=== PATIENT | female | born 1950 | race Caucasian/White ===

== ENCOUNTER 2018-03-02 03:18 | Outpatient (RCR) | payer MEDICARE, OTHER, SELFPAY ==
[2018-03-02 08:55] LABS: Absolute Basophil Count 0.01 k/cumm (0.0-0.2); Absolute Lymphocyte Count 0.58 k/cumm (1.2-3.4); Absolute Monocyte Count 0.47 k/cumm (0.11-0.7); Basophils % 0.2; Eosinophils % 2.5; HCT 38.3 % (36.0-46.0); Lymphocytes % 14.3; Mean Corp. HGB Concentration 33.9 g/dL (32.0-36.0); Mean Corpuscular Hemoglobin 33.7 pg (27.0-33.0); Mean Corpuscular Volume 99.2 fL (80-95); Mean Platelet Volume 8.9 fL (8.0-11.0); Monocytes % 11.6; Neutrophils % 71.4; Platelet Count 269 x1000/uL (130-400); RBC 3.86 m/cumm (4.00-5.20); RBC Distribution Width 13.1 % (11.7-14.6); White Blood Cell Count 4.06 k/cumm (4.4-10.8)
[2018-03-02 09:13] LABS: ALT 31 U/L (12-78); AST 32 U/L (15-37); Albumin 3.3 g/dL (3.4-5.0); Alkaline Phosphatase 76 U/L (46-116); Anion Gap 9.9 mmol/L (3-11); BUN 11 mg/dL (7-18); Bilirubin, Total 0.4 mg/dL (0.2-1.0); CO2 26.1 mmol/L (21.0-32.0); Calcium 8.7 mg/dL (8.5-10.1); Chloride 103 mmol/L (98-107); Glucose 116 mg/dL (70-100); Potassium 3.7 mmol/L (3.5-5.1); Sodium 139 mmol/L (136-145)
[2018-03-23 12:15] LABS: Absolute Basophil Count 0.01 k/cumm (0.0-0.2); Absolute Eosinophil Count 0.09 k/cumm (0.0-0.7); Absolute Monocyte Count 0.62 k/cumm (0.11-0.7); Absolute Neutrophil Count 3.81 k/cumm (1.2-6.7); Basophils % 0.2; Eosinophils % 1.7; HCT 38.9 % (36.0-46.0); HGB 13.1 g/dL (12.0-15.5); Mean Corp. HGB Concentration 33.7 g/dL (32.0-36.0); Mean Corpuscular Hemoglobin 33.7 pg (27.0-33.0); Monocytes % 11.6; Neutrophils % 71.5; Platelet Count 273 x1000/uL (130-400); RBC 3.89 m/cumm (4.00-5.20); White Blood Cell Count 5.33 k/cumm (4.4-10.8)
[2018-03-23 12:27] LABS: ALT 30 U/L (12-78); AST 28 U/L (15-37); Albumin 3.6 g/dL (3.4-5.0); Alkaline Phosphatase 74 U/L (46-116); Anion Gap 4.3 mmol/L (3-11); BUN 13 mg/dL (7-18); Bilirubin, Total 0.3 mg/dL (0.2-1.0); CO2 28.7 mmol/L (21.0-32.0); CREATININE 0.59 mg/dL (0.55-1.02); Chloride 104 mmol/L (98-107); Glucose 98 mg/dL (70-100); Potassium 4.3 mmol/L (3.5-5.1); Sodium 137 mmol/L (136-145); Total Protein 7.4 g/dL (6.4-8.2)
== END 2018-03-24 ==
LOC: INF 03:29
PROVIDERS: PCP Family Medicine; Visit Provider Internal Medicine Medical Oncology
DX: C50.411 Malignant neoplasm of upper-outer quadrant of right female breast (principal); Z45.2 Encounter for adjustment and management of vascular access device
CPT/HCPCS: 36415; 80053; 85025

== ENCOUNTER 2018-04-17 00:59 | Outpatient (RCR) | payer MEDICARE, OTHER, SELFPAY ==
[2018-04-17 12:18] LABS: Absolute Basophil Count 0.03 k/cumm (0.0-0.2); Absolute Lymphocyte Count 0.65 k/cumm (1.2-3.4); Absolute Neutrophil Count 3.49 k/cumm (1.2-6.7); Basophils % 0.6; Eosinophils % 2.1; HCT 39.3 % (36.0-46.0); HGB 13.3 g/dL (12.0-15.5); Lymphocytes % 13.6; Mean Corp. HGB Concentration 33.8 g/dL (32.0-36.0); Mean Corpuscular Hemoglobin 33.8 pg (27.0-33.0); Mean Platelet Volume 8.9 fL (8.0-11.0); Monocytes % 10.5; Neutrophils % 73.2; Platelet Count 269 x1000/uL (130-400); RBC 3.93 m/cumm (4.00-5.20); RBC Distribution Width 12.7 % (11.7-14.6); White Blood Cell Count 4.77 k/cumm (4.4-10.8)
[2018-04-17 12:29] LABS: ALT 28 U/L (12-78); AST 25 U/L (15-37); Albumin 3.4 g/dL (3.4-5.0); Alkaline Phosphatase 74 U/L (46-116); Anion Gap 8.7 mmol/L (3-11); BUN 19 mg/dL (7-18); Bilirubin, Total 0.4 mg/dL (0.2-1.0); CO2 29.3 mmol/L (21.0-32.0); CREATININE 0.57 mg/dL (0.55-1.02); Calcium 9.2 mg/dL (8.5-10.1); Chloride 101 mmol/L (98-107); Glucose 110 mg/dL (70-100); Potassium 3.5 mmol/L (3.5-5.1); Sodium 139 mmol/L (136-145); Total Protein 7.1 g/dL (6.4-8.2)
== END 2018-04-23 23:59 | disposition home or self-care (01) ==
LOC: INF 00:59
PROVIDERS: PCP Family Medicine; Visit Provider Internal Medicine Medical Oncology
DX: C50.411 Malignant neoplasm of upper-outer quadrant of right female breast (principal); Z17.0 Estrogen receptor positive status [ER+]; C50.412 Malignant neoplasm of upper-outer quadrant of left female breast
CPT/HCPCS: 36415; 80053; 85025

== ENCOUNTER 2018-10-30 10:04 | Outpatient (CLI) | payer MEDICARE, OTHER, SELFPAY ==
[2018-10-30 10:32] LABS: Abs Immature Grans 0.02 k/cumm (0.0-0.09); Absolute Basophil Count 0.02 k/cumm (0.0-0.2); Absolute Lymphocyte Count 0.97 k/cumm (1.2-3.4); Absolute Monocyte Count 0.57 k/cumm (0.11-0.7); Absolute Neutrophil Count 4.35 k/cumm (1.2-6.7); Basophils % 0.3; Eosinophils % 1.7; HCT 40.9 % (36.0-46.0); HGB 13.8 g/dL (12.0-15.5); Immature Grans % 0.3; Lymphocytes % 16.1; Mean Corp. HGB Concentration 33.7 g/dL (32.0-36.0); Mean Corpuscular Hemoglobin 33.7 pg (27.0-33.0); Mean Platelet Volume 8.5 fL (8.0-11.0); Monocytes % 9.5; Neutrophils % 72.1; Platelet Count 260 x1000/uL (130-400); RBC 4.09 m/cumm (4.00-5.20); RBC Distribution Width 13.1 % (11.7-14.6); White Blood Cell Count 6.03 k/cumm (4.4-10.8)
[2018-10-30 10:45] LABS: ALT 22 U/L (12-78); AST 24 U/L (15-37); Albumin 3.7 g/dL (3.4-5.0); Alkaline Phosphatase 77 U/L (46-116); BUN 12 mg/dL (7-18); Bilirubin, Total 0.5 mg/dL (0.2-1.0); CREATININE 0.61 mg/dL (0.55-1.02); Calcium 9.1 mg/dL (8.5-10.1); Chloride 100 mmol/L (98-107); Glucose 107 mg/dL (70-100); Potassium 3.9 mmol/L (3.5-5.1); Sodium 137 mmol/L (136-145); Total Protein 7.5 g/dL (6.4-8.2)
== END 2018-10-30 10:24 ==
PROVIDERS: PCP Family Medicine; Visit Provider Internal Medicine Medical Oncology
DX: C50.411 Malignant neoplasm of upper-outer quadrant of right female breast (principal); Z17.0 Estrogen receptor positive status [ER+]; C50.412 Malignant neoplasm of upper-outer quadrant of left female breast
CPT/HCPCS: 36415; 80053; 85025

== ENCOUNTER 2019-04-24 12:58 | Outpatient (CLI) | payer MEDICARE, OTHER, SELFPAY ==
[2019-04-24 13:20] LABS: Abs Immature Grans 0.01 k/cumm (0.0-0.09); Absolute Basophil Count 0.02 k/cumm (0.0-0.2); Absolute Eosinophil Count 0.18 k/cumm (0.0-0.7); Absolute Lymphocyte Count 1.08 k/cumm (1.2-3.4); Absolute Monocyte Count 0.52 k/cumm (0.11-0.7); Absolute Neutrophil Count 3.63 k/cumm (1.2-6.7); Basophils % 0.4; Eosinophils % 3.3; HCT 37.6 % (36.0-46.0); HGB 12.7 g/dL (12.0-15.5); Immature Grans % 0.2; Lymphocytes % 19.9; Mean Corp. HGB Concentration 33.8 g/dL (32.0-36.0); Mean Corpuscular Hemoglobin 33.3 pg (27.0-33.0); Mean Corpuscular Volume 98.7 fL (80-95); Monocytes % 9.6; Neutrophils % 66.6; Platelet Count 289 x1000/uL (130-400); RBC 3.81 m/cumm (4.00-5.20); RBC Distribution Width 13.1 % (11.7-14.6); White Blood Cell Count 5.44 k/cumm (4.4-10.8)
[2019-04-24 14:13] LABS: ALT 25 U/L (14-59); AST 21 U/L (15-37); Albumin 3.7 g/dL (3.4-5.0); Alkaline Phosphatase 56 U/L (46-116); Anion Gap 8.4 mmol/L (3-11); BUN 22 mg/dL (7-18); Bilirubin, Total 0.3 mg/dL (0.2-1.0); CO2 28.6 mmol/L (21.0-32.0); CREATININE 0.79 mg/dL (0.55-1.02); Calcium 9.8 mg/dL (8.5-10.1); Chloride 105 mmol/L (98-107); Glucose 122 mg/dL (70-100); Potassium 3.9 mmol/L (3.5-5.1); Sodium 142 mmol/L (136-145); Total Protein 7.1 g/dL (6.4-8.2)
== END 2019-04-24 13:18 ==
PROVIDERS: PCP Family Medicine; Visit Provider Nurse Practitioner Family
DX: C50.411 Malignant neoplasm of upper-outer quadrant of right female breast (principal); Z17.0 Estrogen receptor positive status [ER+]
CPT/HCPCS: 36415; 80053; 85025

== ENCOUNTER 2020-01-08 00:04 | Outpatient (CLI) | payer MEDICARE, OTHER, SELFPAY ==
--- NOTE | 2020-01-08 | DI.DEXA_ITS ---
EXAM: XR DEXA BONE DENSITY W/WO ELISA CLINICAL HISTORY: ALF USE AROMATASE INHIBITORS, Z79.811, BREAST CA,C50.411,Z17.0,C50.41 TECHNIQUE: [employer] Horizon C densitometer. COMPARISON: CR PORTABLE AP CHEST, POST LINE from 03/09/2017 FINDINGS: The lateral view of the thoracic and lumbar spine shows accentuation of the normal thoracic kyphosi s and a question of mild anterior wedging of the T7 vertebral body. The bone mineral density measurements of the lumbar spine correspond to a total T-score of -3.1, in t he osteoporotic range. The bone mineral density measurements of the left hip correspond to a total T -score of -2.1 and a femoral neck T-score of -2.2, in the osteopenic range. The bone mineral density measurements of left forearm correspond to a T-score of distal 3rd of -3.3, consistent with osteopor osis. IMPRESSION: Osteoporosis of the lumbar spine and left forearm. Osteopenia the left hip. Question of a mild compression fracture of T7.
== END 2020-01-08 00:24 ==
PROVIDERS: PCP Family Medicine; Visit Provider Internal Medicine Hematology & Oncology
DX: C50.411 Malignant neoplasm of upper-outer quadrant of right female breast (principal); Z17.0 Estrogen receptor positive status [ER+]; Z79.811 Long term (current) use of aromatase inhibitors; M81.0 Age-related osteoporosis without current pathological fracture; M85.88 Other specified disorders of bone density and structure, other site
CPT/HCPCS: 77080

== ENCOUNTER 2020-01-17 02:53 | Outpatient (CLI) | payer MEDICARE, OTHER, SELFPAY ==
[2020-01-17 10:23] LABS: ALT 23 U/L (14-59); AST 25 U/L (15-37); Albumin 3.7 g/dL (3.4-5.0); Alkaline Phosphatase 53 U/L (46-116); Anion Gap 10.8 mmol/L (3-11); BUN 16 mg/dL (7-18); Bilirubin, Total 0.4 mg/dL (0.2-1.0); CO2 25.2 mmol/L (21.0-32.0); Calcium 9.4 mg/dL (8.5-10.1); Chloride 100 mmol/L (98-107); Glucose 103 mg/dL (74-106); Sodium 136 mmol/L (136-145); Total Protein 7.6 g/dL (6.4-8.2)
== END 2020-01-17 03:13 ==
PROVIDERS: PCP Family Medicine; Visit Provider Internal Medicine Hematology & Oncology
DX: C50.411 Malignant neoplasm of upper-outer quadrant of right female breast (principal); C50.412 Malignant neoplasm of upper-outer quadrant of left female breast; Z17.0 Estrogen receptor positive status [ER+]; Z79.811 Long term (current) use of aromatase inhibitors
CPT/HCPCS: 36415; 80053

== ENCOUNTER → 2020-08-14 11:28 | Outpatient (BNVA) | payer MEDICARE, OTHER, SELFPAY | PROVIDERS: PCP Family Medicine; Referring Provider Family Medicine; Visit Provider Surgery | DX: K59.00 Constipation, unspecified (principal); R19.7 Diarrhea, unspecified; C50.911 Malignant neoplasm of unspecified site of right female breast; Z79.811 Long term (current) use of aromatase inhibitors | CPT/HCPCS: 99202; 99214 ==

== ENCOUNTER 2020-08-14 20:49 | Outpatient (REF) | payer MEDICARE, OTHER, SELFPAY ==
[2020-08-14 19:53] LABS: Abs Immature Grans 0.02 10^3/uL (0.0-0.06); Absolute Basophil Count 0.04 10^3/uL (0.0-0.2); Absolute Eosinophil Count 0.16 10^3/uL (0.0-0.7); Absolute Lymphocyte Count 1.33 10^3/uL (1.2-3.4); Absolute Monocyte Count 0.67 10^3/uL (0.1-0.8); Absolute Neutrophil Count 5.35 10^3/uL (1.2-6.7); Basophils % 0.5; Eosinophils % 2.1; HGB 14.2 g/dL (11.2-15.7); Immature Grans % 0.3; Lymphocytes % 17.6; MCH 32.1 pg (27.0-33.0); MCV 97.3 fL (80-95); MPV 9.4 fL (8.0-11.0); Monocytes % 8.9; Neutrophils % 70.6; Nucleated RBC 0 %; Platelet Count 368 10^3/uL (130-400); RBC 4.42 10^6/uL (3.93-5.22); RDW-SD 46.9 fL; WBC 7.57 10^3/uL (4.4-10.8)
== END 2020-08-14 21:09 ==
LOC: LBN 20:49
PROVIDERS: PCP Family Medicine; Visit Provider Surgery
DX: C50.411 Malignant neoplasm of upper-outer quadrant of right female breast (principal)
CPT/HCPCS: 85025

== ENCOUNTER 2020-08-26 02:37 | Outpatient (CLI) | payer MEDICARE, OTHER, SELFPAY ==
[2020-08-27 12:34] LABS: COVID-19 RT-PCR UVMMC Result Negative (Negative)
== END 2020-08-26 02:38 | disposition home or self-care (01) ==
LOC: LBO 02:37
PROVIDERS: PCP Family Medicine; Visit Provider Surgery
DX: Z11.52 Encounter for screening for COVID-19 (principal); Z01.818 Encounter for other preprocedural examination
CPT/HCPCS: U0003; U0005

== ENCOUNTER 2020-08-29 08:01 | Day surgery (SDC) | payer MEDICARE, OTHER, SELFPAY ==
--- NOTE | 2020-08-29 | DI.CT_ITS ---
EXAM: CT ABDOMEN PELVIS W CLINICAL HISTORY: rectal cancer TECHNIQUE: Imaging Protocol: Axial computed tomography images with coronal and sagittal reformatted images were created and reviewed CONTRAST MATERIAL: Intravenous: Omnipaque 350 Contrast volume:80 mL Oral: Yes COMPARISON: No exams were available for comparison FINDINGS: ABDOMEN: Lung Bases: There is a 0.5 cm pleural based noncalcified pulmonary nodule in the right lower lobe. T here is a small hiatal hernia. Liver: Normal density. There is a 1.5 cm cyst adjacent to the IVC. There is a 1.2 cm cyst in the lef t lobe of the liver. There are few tiny hypodensities seen in the liver. They are too small for fur ther characterization, but likely reflect small cysts. Portal, Superior Mesenteric, and Splenic Veins: Unremarkable. Gallbladder and Biliary Tract: No radiodense calculus or dilation. Pancreas: Normal density, no abnormal calcifications or inflammatory process. Spleen: Normal. Adrenals: No masses seen. Kidneys: Normal size, contour and axis. No radiodense stones or obstructive uropathy. No masses seen. Abdominal Aorta: Abdominal portion non-dilated. Mild atherosclerosis. Bowel: There is concentric irregular thickening of the wall of the rectum. Rectal carcinoma should b e considered. There is a question of extension anteriorly into the tissues of the vagina. There are adjacent mildly enlarged lymph nodes. No evidence of appendicitis. No evidence of bowel obstructio n. Peritoneal Cavity: No ascites, collection or mesenteric inflammatory response. No free air. Lymph Nodes: Please see the above section on bowel. Bones: Degenerative changes are seen in the spine. No suspicious lytic or sclerotic lesions are seen in the bones. Soft Tissues: Unremarkable. PELVIS: Bladder: Symmetric distention, no gross wall thickening. Reproductive Organs: Please see the above discussion on the bowel. Lymph Nodes: Mildly prominent lymph nodes in the pelvis adjacent to the rectum. Bones: No suspicious lytic or sclerotic lesions. IMPRESSION: 1. Irregular diffuse thickening of the wall of the rectum. There does appear to be extension anterio rly into the vagina. The findings are suspicious for rectal carcinoma. Inflammation/infection are c onsidered less likely. 2. Mildly enlarged lymph nodes seen in the perirectal soft tissues. 3. Hepatic cysts. No evidence of a hepatic mass. 4. No lytic or sclerotic lesions in the bones. RADIATION DOSE DELIVERED: 592.92mGy.cm Total DLP DATA REPOSITORY: All CT scans at this facility are submitted to the National Radiology Data Registry (NRDR) Dose Index Registry (DIR) with the [employer] (ACR). RADIATION OPTIMIZATION: All CT scans at this facility use at least one of these dose optimization te chniques: automated exposure control; mA and/or kV adjustment per patient size (includes targeted exa ms where dose is matched to clinical indication); or iterative reconstruction.
[2020-08-29 08:16] VITALS: BP 128/83; PULSE 118; RESP 18; TEMP 36.4; O2SAT 97
[2020-08-29] MEDS: Lactated Ringers 1,000 ML 80 ML IV (08:34)
--- NOTE | 2020-08-29 09:18 | BOWEL_PTH ---
PATIENT: Leelee Ly LOC: [facility] U#:[id number] AGE/SX: 70/F ROOM: RE08/29/[address]: Airam Olvera : 1950 BED: DIS: 08/29/2020 SPEC #: [id number] RECD: 08/29/20 12:39 STATUS: CAROLYNN REQ #: [id number] ANITA: 08/29/20 09:[address]: Airam Olvera DEPT: Surgical Specimen RECD BY: Fior Hunter ENTERED: 08/29/20 12:40 SP TYPE: Bowel OTHR DR: Da Zepeda Tissues: 1 - BIOPSY BOWEL Procedures: GROSS AND MICRO LEVEL 4 Comments: [id number]
--- NOTE | 2020-08-29 10:00 | W.COLOREPORT ---
Date of service: 08/29/20 Time of Service: 10:01 Colonoscopy Report Date of procedure: 08/29/20 Pre-op diagnosis general: bloody diarrhea Post-op diagnosis procedure note: other (rectal cancer ) Procedure: CE w/ BX Surgeon: Airam Olvera Anesthesia proc note operative: GETA Estimated blood loss (mL): 5 Pathology: none sent Complications: None Disposition: same day Retraction Time: 10 mins Procedure Description: After informed consent was obtained the patient was taken to the procedure room and placed in a left decubitous position. Monitors were applied and a time out was done. The patients name, date of , procedure, allergies to medications and metal in their body was reviewed. The patient was then sedated. Once sedated and comfortable a rectal exam was done. External exam was normal. Internal exam reveals a large mass. The scope was then advanced to the cecum w/out difficulty. The TI and appendiceal orifice were identified. The prep was poor quality- but I think this is more from chronic obstruction, rather than not following directions. The scope was then slowly retracted over 10 minutes back into the rectum. Cecum was achieved at 100 cm. There is no AVMs, diverticula, or polyps.. She does have a rectal mass that extends all the way from the internal sphincters to about 8 cm in the rectum. It is circumferential and covers about 90% of the wall. Is friable and bleeds quite readily. Multiple biopsies are taken. This does have the characteristics of a cancer. It is partially obstructing (occludes at least 70% of lumen) and with administration of radiation, there could be a very real possibility that she develops an obstruction and may require a diverting ostomy during her radiation therapy. the scope was removed, and the patient was woken up and taken back to Same day surgery in stable condition. The patient tolerated the procedure well and there were no immediate complications. Further oncologic work-up in process. [place] [facility] [place] I will have my office contact his office. Pt was instructed to F/u w/ his office as well.
[2020-08-29 10:17] VITALS: BP 148/89; PULSE 85; RESP 16; TEMP 36.7; O2SAT 98
[2020-08-29 10:47] LABS: ALT 17 U/L (14-59); AST 16 U/L (15-37); Albumin 3.4 g/dL (3.4-5.0); Alkaline Phosphatase 58 U/L (46-116); Anion Gap 7.6 mmol/L (3-11); BUN 9 mg/dL (7-18); Bilirubin, Total 0.4 mg/dL (0.2-1.0); CO2 27.4 mmol/L (21.0-32.0); CREATININE 0.7 mg/dL (0.55-1.02); Calcium 9.4 mg/dL (8.5-10.1); Chloride 102 mmol/L (98-107); Glucose 107 mg/dL (74-106); Potassium 4.2 mmol/L (3.5-5.1); Sodium 137 mmol/L (136-145); Total Protein 7.2 g/dL (6.4-8.2)
[2020-08-29] MEDS: Omnipaque 350 MG/ML 100 ML BTL IJ (12:46)
[2020-08-29] MEDS: Normal Saline - Diluent 50 ML VIAL IV (12:47)
--- NOTE | 2020-08-29 13:13 | DI.RAD_ITS ---
EXAM: XR CHEST 2V PA LATERAL CLINICAL HISTORY: rectal cancer- new.hx of breast ca TECHNIQUE: 2D digital imaging was performed. COMPARISON: CR PORTABLE AP CHEST, POST LINE from 03/09/2017 FINDINGS: MEDIASTINUM: Normal. HEART: Normal. PULMONARY VASCULATURE: Normal. LUNGS: Clear. PLEURAL SPACE: No pleural effusion or pneumothorax. BONE:Within normal limits for the patient's age. OTHER FINDINGS:Normal. IMPRESSION: No acute pulmonary findings. DATA REPOSITORY: RADIATION DOSE DELIVERED:
--- NOTE | 2020-08-29 13:55 | W.PM.DSUDISC ---
Discharge Plan Disposition Patient Disposition: HOME Condition: Good Discharge Details Reason For Visit: colon scope Attending Provider: Airam Olvera Primary Care Provider: Da Zepeda Home Meds and New Rx's Prescriptions: No Action ibuprofen [Advil] 200 mg tablet 200 mg PO Q6H PRNRF: 0 letrozole 2.5 mg tablet 2.5 mg PO DAILY RF: 0 sennosides [Natural Senna Laxative] 8.6 mg tablet 17.2 mg PO BID RF: 0 Calcium 600 + D(3) 1 EACH tablet 1 ea PO DAILY RF: 0 acetaminophen [Tylenol] 325 mg Capsule 650 mg PO PRN PRNRF: 0 calcium carbonate [Tums] 200 mg calcium (500 mg) Tablet,Chewable 200 mg PO PRN PRNRF: 0 Discharge Instructions Additional Instructions: Findings:rectal mass -you will have bleeding for the next 72 hrs. If you are passing clots larger than your fist- go to the ER. -Avoid aspirin or ibuprofen. Tylenol is OK -Avoid straining to move bowels. If you are having problems w/ constipation, use Milk of Magnesia or Miralax. If you do not have a BM every 72hrs- contact your Primary Physician. Follow up: [place]. Philippe [place] [facility] [place] Please call if you develop: fevers >101.5 Nausea or Vomiting Abdominal pain that is not transient DAY SURGERY UNIT POST COLONOSCOPY INSTRUCTIONS 1. Because there will be medication in your system for the next 24 hours, you may feel a little sleepy. Your coordination will be affected. Therefore: a. Do not drive or operate dangerous equipment for 24 hours. b. Do not drink alcohol beverages for 24 hours (not even beer). c. Plan to go home and rest for the day. 2. Generally there are no restrictions on your activity after a day or so has gone by, but you may feel a bit fatigued for a few days. 3 After you arrive home you may have a light meal and return to a normal diet as you can tolerate it without feeling sick to your stomach. 4. After surgery, you may feel pain or discomfort. This should be only transient, but if it persists please contact your doctor. 5. If there are any questions regarding the findings of your procedure, please feel free to contact your doctor. 6. If you are unable to contact your doctor with a problem, contact the hospital at [phone]. 7. Continue all your regular medications unless directed otherwise. I understand the above instructions and have no questions. Signature of Patient or Responsible Adult Escort Date/Time Name of Responsible Adult Escort Signature of Nurse Date/Time Activity:: No lifting over 20 pounds or strenuous activity x24 hours. Diet:: Small light meals x24 hours. DS: Diagnosis Discharge Diagnosis (1) Rectal cancer: Status: Acute
[2020-08-29 23:02] LABS: CEA 3.3 ng/mL (See Note)
[2020-09-01 11:40] LABS: Cancer Ag 15-3 13 U/mL (<30)
== END 2020-08-29 14:44 | disposition home or self-care (01) ==
PROVIDERS: PCP Family Medicine; Visit Provider Surgery
PROC: 0DJD8ZZ Inspection of Lower Intestinal Tract, Via Natural or Artificial Opening Endoscopic (ICD-10-PCS; CPT 45378; principal; 2020-08-29 09:00)
DX: K92.1 Melena (principal); C20 Malignant neoplasm of rectum; Z85.3 Personal history of malignant neoplasm of breast
CPT/HCPCS: 45380; 36415; 80053; 86304; 88305; 71046; 74177; 82378; 86300; J3490

== ENCOUNTER 2020-09-19 15:58 | Outpatient (CLI) | payer MEDICARE, OTHER, SELFPAY ==
[2020-09-24 19:55] LABS: DPYD Predicted Toxicity Risk Normal
== END 2020-09-19 15:59 | disposition home or self-care (01) ==
LOC: LBO 15:59
PROVIDERS: PCP Family Medicine; Visit Provider Internal Medicine Hematology & Oncology
DX: C20 Malignant neoplasm of rectum (principal)
CPT/HCPCS: 36415; 81232

== ENCOUNTER 2020-09-30 07:55 | Day surgery (SDC) | payer MEDICARE, OTHER, SELFPAY ==
--- NOTE | 2020-09-29 20:33 | W.PM.HP.N ---
Date of service: 09/30/20 Time of Service: 08:30 Assessment and Plan Assessment and plan (1) Rectal cancer: Status: Acute Assessment and plan: PLAN I discussed placing a vascular access device with the pt and the alternatives to the procedure. We discussed what the port would look like, and how to take care of the port at home and the limitations that it does impose on lifestyle. We discussed that is does need to be flushed monthly when not being actively used. We discussed how the tube is placed in surgery and how it is removed. We discussed daily maintenance and care. Care of the port was also reviewed in detailed. Risk of port placement include but are not limited to: Bleeding, infection, damage to vein, artery, nerve or lung, aspiration and pneumonia, respiratory distress or airway obstruction, complications of anesthesia. If pneumothorax occurs, may need to have a chest tube. The lines can become thrombosed and may need to be changed periodically. The pt was receive pre-op hydration and antibiotics. The patient should be off asa/NSAID/coumadin/Plavix/anticoagulants prior to the procedure. Me have to place on the right side even though she has had previous right sided breast surgery because of prior port placement and scarring. She had problems with skin over the port never healed and remain open and she did get a superficial infection in the port and had to have it removed before treatment was completed (2) Bloody diarrhea: Status: Acute (3) Biopsy of breast: Status: None (4) Breast cancer, right breast: Status: None History of Present Illness I discussed placing a vascular access device with the pt and the alternatives to the procedure. We discussed what the port would look like, and how to take care of the port at home and the limitations that it does impose on lifestyle. We discussed that is does need to be flushed monthly when not being actively used. We discussed how the tube is placed in surgery and how it is removed. We discussed daily maintenance and care. Care of the port was also reviewed in detailed. Risk of port placement include but are not limited to: Bleeding, infection, damage to vein, artery, nerve or lung, aspiration and pneumonia, respiratory distress or airway obstruction, complications of anesthesia. If pneumothorax occurs, may need to have a chest tube. The lines can become thrombosed and may need to be changed periodically. The pt was receive pre-op hydration and antibiotics. The patient should be off asa/NSAID/coumadin/Plavix/anticoagulants prior to the exam. Narrative: she was recently dg w/ recta cancer- advaced. She is going to have preOp chemo & XRT. She requires a port for this. She had a prior right breast cancer and left- sided port. We will try to place the port again on the left, this may not be feasible b/c of scar tissue. risk: Review of Systems All systems reviewed & are unremarkable except as noted in HPI and below PFSH Medical History Breast cancer, right breast History of colon polyps Rectal adenocarcinoma (~08/29/20) Surgical History Biopsy of breast (03/14/17) Breast, Lumpectomy (08/30/17) right breast FNA right axillary lymp nodes History of colonoscopy (~08/29/20) Mediport placement mediport removal infected-01/06/18 Social History Smoking/Tobacco Use Status: Never Smoking risk assessment performed?: Yes Alcohol Intake: current Alcohol Intake frequency: a few times a week Alcohol type: hard liquor Drug use: Never Substance use type: does not use Do you feel safe at home: Yes Do you feel safe in your relationship?: Yes Meds Home Medications and Allergies Allergies Allergy/AdvReac Type Severity Reaction Status Date / Time No Known Allergies Allergy Unverified 09/26/20 14:09 Home Medications Medication Instructions Recorded Confirmed Type Calcium 600 + D(3) 1 ea PO DAILY 03/07/17 09/26/20 History letrozole 2.5 mg tablet 2.5 mg PO DAILY 08/14/20 09/26/20 History acetaminophen [Tylenol] 650 mg PO PRN PRN 08/29/20 09/26/20 History Exam Neck Other: prior L power port. Resp Effort & Inspection: normal respiratory effort and able to speak in complete sentences Auscultation: clear to auscultation bilaterally Cardio Rate: regular rate Rhythm: regular rhythm COVID-19 Screening Have you, or household traveled for leisure in last 14 days?: No Had IN PERSON contact w/suspected or confirmed C-19 person: No
[2020-09-30] VITALS (8 sets, daily range): BP systolic 90–136; BP diastolic 63–76; PULSE 85–101; RESP 13–21; TEMP 36.2–36.9; O2SAT 96–99
--- NOTE | 2020-09-30 | DI.RAD_ITS ---
EXAM: PORT PLACEMENT CLINICAL HISTORY: TECHNIQUE: 2D and realtime digital imaging was performed. CONTRAST MATERIAL: Refer to procedure report. COMPARISON: No exams were available for comparison FINDINGS: Fluoroscopy was provided for Dr. Olvera during the performance of an indwelling port placement. Pl ease refer to the procedure report for complete details. Fluoro time: 4 seconds IMPRESSION:
--- NOTE | 2020-09-30 | DI.RAD_ITS ---
EXAM: XR PORTABLE CHEST AP CLINICAL HISTORY: procedure TECHNIQUE: 2D digital imaging was performed. COMPARISON: No exams were available for comparison FINDINGS: MEDIASTINUM: Normal. HEART: Normal. PULMONARY VASCULATURE: Normal. LUNGS: Mild linear atelectasis is seen in the left lung base. PLEURAL SPACE: There has been interval placement of a left chest tube. The tip of the catheter is di rected into the left lung apex. No pneumothorax is identified. No right pneumothorax is identified. BONE:Within normal limits for the patient's age. OTHER FINDINGS:The tip of the Port-A-Cath is in good position at the junction of the superior vena ca va and right atrium. IMPRESSION: Interval placement of a left chest tube with resolution of the left pneumothorax. Mild atelectasis in the left lung base. DATA REPOSITORY: RADIATION DOSE DELIVERED:
[2020-09-30] MEDS: Acetaminophen 500 MG TAB 1000 MG PO ×2 (08:20→14:55)
[2020-09-30] MEDS: ceFAZolin 2 GM/50 ML BAG IVPB (09:43)
[2020-09-30] MEDS: Heparin 500 UNITS/5 ML SYRINGE (10:20)
[2020-09-30] MEDS: Normal Saline 50 ML (10:20)
[2020-09-30] MEDS: Bupivacaine 0.25% Pres-Free 30 ML VIAL (10:20)
--- NOTE | 2020-09-30 10:50 | DI.RAD_ITS ---
TECHNIQUE: 2D digital imaging was performed. COMPARISON: CR PORTABLE AP CHEST, POST LINE from 03/09/2017 CR XR CHEST 2V PA LATERAL from 08/29/2020 FINDINGS: MEDIASTINUM: Mediastinum is unchanged in alignment compared to the chest x-ray from 08/29/2020. HEART: Normal. PULMONARY VASCULATURE: Normal. LUNGS: Clear. PLEURAL SPACE: There is a left pneumothorax. Pneumothorax is approximately 30 percent of the left he mithorax. No pleural effusion is seen. BONE:Within normal limits for the patient's age. OTHER FINDINGS:There has been placement of a right-sided Ooyava-W-Cjke type catheter. The tip is in good position in the superior vena cava. No right pneumothorax is present. IMPRESSION: 1. Left pneumothorax occupying approximately 30 percent of the hemithorax. 2. Interval placement of a right Yomepw-N-Oaqb catheter. The tip is in good position in the superior vena cava. No right pneumothorax. 3. Findings were discussed with Dr. Olvera on the date of the examination. DATA REPOSITORY: RADIATION DOSE DELIVERED:
--- NOTE | 2020-09-30 12:32 | W.PM.OP ---
Date of service: 09/30/20 Time of Service: 12:32 Operative Note Operative Note DATE OF PROCEDURE: 09/30/20 PRE-OP DIAGNOSIS: iatrogenic PTX POST-OP DIAGNOSIS: same PROCEDURE: left PTX catheter SURGEON: Airam Olvera ANESTHESIA TYPE: Local By Surgeon Refer to Anesthesia Record ESTIMATED BLOOD LOSS: 0 Procedure Description: Patient unfortunately sustained a pneumothorax while attempting to pace placed left subclavian PowerPort. She had had a PowerPort on the left previously. Informed consent is obtained explaining risks and benefits of procedure including not limited to: Bleeding, infection, injury to vessel damage to lung, etc. Timeout is performed we concur we are placing this on the left. The left chest wall is prepped and draped in the usual sterile fashion using a ChloraPrep scrub solution was infiltrated with 10 cc of 1% lidocaine plain. A small alexis is made with a #11 blade. The catheter is inserted in the second intercostal space mid axillary line. It sewn in place. Is hooked up to continuous suction. Sterile occlusive dressing is applied. Post procedure chest x-ray confirms position and resolution of pneumothorax.
--- NOTE | 2020-09-30 12:40 | W.PM.PROGNOT ---
Date of Service Date of service: 09/30/20 Time of Service: 11:00 Assessment and Plan Assessment and plan (1) Rectal cancer: Status: Acute (2) Bloody diarrhea: Status: Acute (3) Breast cancer, right breast: Status: None (4) Iatrogenic pneumothorax: Status: Acute Assessment and plan: Patient had port previously placed on the left side for breast cancer. The skin thinned out and were through self/never healed properly. She ended up having the port removed for low-grade infection. This was placed for a right-sided breast cancer. She has no chronic pain or numbness in the right arm. She has no lymphedema on the right. Her surgery was greater than 1 years time ago. I did discuss with her preop that there is a chance we may not be able to place the port on the right side because she has had previous right-sided port we may have to place this on the left. I was unable to obtain venous blood flow on the left and unfortunately did get air. Her sats remained around 98% the whole time. Her postprocedural chest x-ray the preliminary view I did not appreciate her pneumothorax. Dr. Lazo did see it and called me. I did discuss with the patient that we need to remove the air out of the light left chest. And place a pneumothorax catheter so that this will resolve. Risks include bleeding infection damage to the lung and continuation of the pneumothorax. Patient agrees and the pneumothorax start catheter was placed and the pneumo did resolve. There was no bleeding. She tolerated the procedure well. 13:30:Patient was kept in the same with her surgery throughout the entirety. Repeat chest x-ray in our after the pneumothorax was placed, it showed resolution of the pneumothorax. Catheter was then placed to waterseal. Repeat chest x-ray at 1430 hrs. showed no recurrence of the pneumothorax. Patient was up walking around. And had no chest pain or any symptoms. The pneumothorax catheter was removed 13:30 A chest x-ray at 1600 hrs. shows no further pneumothorax. Patient was discharged home. She will not remove the chest dressing for 24 hours. She will follow-up in clinic on 09/25 for repeat chest x-ray. If she has any recurrence of chest pain or shortness of breath she will return to the emergency department. She will follow-up with oncology as previously scheduled to start IV chemotherapy and rectal radiation. Objective Last Vital Signs Temp 36.4 C L 09/30/20 10:43 Pulse 101 H 09/30/20 10:43 Resp 13 09/30/20 10:43 BP 113/75 09/30/20 10:43 Pulse Ox 97 09/30/20 10:43
--- NOTE | 2020-09-30 14:30 | DI.RAD_ITS ---
EXAM: XR PORTABLE CHEST AP CLINICAL HISTORY: ptx TECHNIQUE: 2D digital imaging was performed. COMPARISON: CR XR PORTABLE CHEST AP from 09/30/2020 FINDINGS: MEDIASTINUM: Normal. HEART: Normal. PULMONARY VASCULATURE: Normal. LUNGS: Mild atelectasis is seen in the left lung base. No new infiltrates are seen. PLEURAL SPACE: No pleural effusion or pneumothorax. BONE:Within normal limits for the patient's age. OTHER FINDINGS:The left chest tube has been repositioned. The Hqtjqu-V-Jagb is stable in position. IMPRESSION: Repositioned left chest tube. No pneumothorax. DATA REPOSITORY: RADIATION DOSE DELIVERED:
--- NOTE | 2020-09-30 15:12 | W.PM.DSUDISC ---
Discharge Plan Disposition Patient Disposition: HOME Condition: Good Discharge Details Reason For Visit: right power port placement /IATROGENIC LEFT PTX Attending Provider: Airam Olvera Primary Care Provider: Da Zepeda Home Meds and New Rx's Prescriptions: No Action letrozole 2.5 mg tablet 2.5 mg PO DAILY RF: 0 Calcium 600 + D(3) 1 EACH tablet 1 ea PO DAILY RF: 0 acetaminophen [Tylenol] 325 mg Capsule 650 mg PO PRN PRNRF: 0 Discharge Instructions Additional Instructions: -ice -no lifting over 5#'s either arm for 5 days -remove surgical dressings after 4pm on Tuesday -F/u for chemo as scheduled. -keep appt for PET on 10/01 -ok to shower Tuesday after 4pm -steris tapes on right side will fall off on there own Activity:: see above Remove Dressings/Wound Care:: 24 hours Shower/Bathe:: 24 hours Diet:: As Tolerated DS: Diagnosis Discharge Diagnosis (1) Rectal cancer: Status: Acute (2) Bloody diarrhea: Status: Acute (3) Breast cancer, right breast: Status: None (4) Iatrogenic pneumothorax: Status: Acute
--- NOTE | 2020-09-30 15:26 | ROE_ITS ---
Date of service: 09/30/20 Time of Service: 09:00 Operative Note Operative Note DATE OF PROCEDURE: 09/30/20 PRE-OP DIAGNOSIS: Rectal cancer/need for central venous access POST-OP DIAGNOSIS: same PROCEDURE: Attempted left PowerPort. Placement of right-sided PowerPort Refer to Anesthesia Record ESTIMATED BLOOD LOSS: 0 Implants: refer surgical garment fitter notes Procedure Description: anesthesia EBL Mac <5cc Pause for the cause: Consent for catheter placement procedure signed Time out completed Patient ID's verified using two distinct indicators All necessary equipment is present Type of line to be used: Single lumen/ buried reservoir Full barrier precautions used: Yes Skin preparation: Chloraprep Date of insertion: 09/30/20 Device type: subclavian buried reservoir venous access device Insertion location: Attempted left/Right subclavian PowerPort Method of placement: Without ultrasound Difficulty threading: No Hand hygiene yes Method of verification: Chest x-ray Line flush: Line flush documented on the eMAR Placement verified by: Physician Catheter placed by: jane Patient tolerance: Tolerated well Intradermal injection Sedation required Summary: This procedure was performed using standard Seldinger technique without difficulty and she tolerated the procedure well with no immediate complications. CHEST XRAY is pending in post op.
--- NOTE | 2020-09-30 15:45 | DI.RAD_ITS ---
EXAM: XR PORTABLE CHEST AP CLINICAL HISTORY: PTX TECHNIQUE: 2D digital imaging was performed. COMPARISON: No exams were available for comparison FINDINGS: MEDIASTINUM: Normal. HEART: Normal. PULMONARY VASCULATURE: Normal. LUNGS: There is plate atelectasis in the left lower lobe. PLEURAL SPACE: There is a small residual left apical pneumothorax. It is less than 5 percent of the left hemithorax. No right pneumothorax is present. No pleural effusion. BONE:Within normal limits for the patient's age. OTHER FINDINGS:The left chest tube has been removed. The left Xszemp-W-Ocej catheter is stable in po sition. The tip is in good position at the junction of the superior vena cava and right atrium. IMPRESSION: Small residual left apical pneumothorax. It occupies less than 5 percent of the left hemithorax. Interval removal of the left chest tube. DATA REPOSITORY: RADIATION DOSE DELIVERED:
--- NOTE | 2020-09-30 16:41 | DI.VRAD_ITS ---
PROCEDURE INFORMATION: Exam: XR Chest Exam date and time: 09/30/2020 4:17 PM Age: 70 years old Clinical indication: Other: Ptx; Prior surgery; Surgery date: Post-operative (0-2 days); Surgery type: Port cath TECHNIQUE: Imaging protocol: XR of the chest Views: 1 view. COMPARISON: CR XR PORTABLE CHEST AP 09/30/2020 2:19 PM FINDINGS: Tubes, catheters and devices: An Xperlb-R-Kfbz through the right internal jugular vein has its tip in the superior vena cava. The previously noted small caliber chest tube in the left upper hemithorax is no more evident. There is no residual pneumothorax Lungs: Plate atelectatic changes in the left lower lobe. Pleural spaces: See Tubes, catheters and devices finding. Heart/Mediastinum: Unremarkable. No cardiomegaly. Bones/joints: Degenerative changes of the thoracic spine. IMPRESSION: 1. Plate atelectatic changes in the left lung base. 2. No acute findings in the lungs 3. An Jutowu-T-Mfeh through the right internal jugular vein has its tip in the superior vena cava 4. The previously noted small caliber chest tube in the left upper hemithorax is no more evident Dictated and Authenticated by: Tony Chiu MD. Ordering:CHRISTINA Alegria MD
== END 2020-09-30 16:46 | disposition home or self-care (01) ==
LOC: SUR 07:55 → MS 12:47 → SUR 15:15
PROVIDERS: PCP Family Medicine; Visit Provider Surgery
PROC: (CPT 36561; principal; 2020-09-30 09:30)
DX: C20 Malignant neoplasm of rectum (principal); J95.811 Postprocedural pneumothorax; Z85.3 Personal history of malignant neoplasm of breast
CPT/HCPCS: 36561; 32551; 71045; 77001; NC; C1788; J0690; J1100; J2405

== ENCOUNTER 2020-10-02 18:35 | Outpatient (CLI) | payer MEDICARE, OTHER, SELFPAY ==
--- NOTE | 2020-10-02 09:00 | DI.RAD_ITS ---
EXAM: XR CHEST 2V PA LATERAL CLINICAL HISTORY: IATROGENIC PNEUMOTHORAX, J95.811 POSTPROCEDUREAL PTX TECHNIQUE: 2D digital imaging was performed. COMPARISON: CR XR CHEST 2V PA LATERAL from 08/29/2020 CR,XR XR PORTABLE CHEST AP from 09/30/2020 FINDINGS: MEDIASTINUM: Normal. HEART: Normal. PULMONARY VASCULATURE: Normal. LUNGS: Left basilar atelectasis. PLEURAL SPACE: No pleural effusion or pneumothorax. BONE:Within normal limits for the patient's age. OTHER FINDINGS:Subcutaneous air is seen overlying the left hemithorax which does obscure evaluation o f the left apex for a small pneumothorax. The tip of the indwelling central venous catheter is in go od position in the superior vena cava. IMPRESSION: 1. No definite left pneumothorax. 2. Interval development of subcutaneous air along the left chest wall. 3. Left basilar atelectasis. DATA REPOSITORY: RADIATION DOSE DELIVERED:
== END 2020-10-02 18:55 ==
PROVIDERS: PCP Family Medicine; Visit Provider Surgery
DX: J95.811 Postprocedural pneumothorax (principal); J98.11 Atelectasis
CPT/HCPCS: 71046

== ENCOUNTER 2020-10-15 08:23 | Outpatient (CLI) | payer MEDICARE, OTHER, SELFPAY ==
[2020-10-15 15:20] LABS: COVID-19 PCR Negative (Negative)
== END 2020-10-15 08:24 | disposition home or self-care (01) ==
PROVIDERS: PCP Family Medicine; Visit Provider Surgery
DX: Z20.822 Contact with and (suspected) exposure to COVID-19 (principal); Z01.818 Encounter for other preprocedural examination
CPT/HCPCS: 87635

== ENCOUNTER 2020-10-24 03:36 | Outpatient (CLI) | payer MEDICARE, OTHER, SELFPAY ==
--- NOTE | 2020-10-24 09:50 | DI.RAD_ITS ---
EXAM: XR CHEST 2V PA LATERAL CLINICAL HISTORY: F/U LT PNEUMOTHORAX,J93.9 TECHNIQUE: COMPARISON: CR XR CHEST 2V PA LATERAL from 10/02/2020 FINDINGS: The heart is not enlarged. There is a right-sided indwelling central venous catheter the tip of whic h lies in superior vena cava. Mediastinal contours appear intact. Lungs are predominantly clear wit h minimal scarring. No pneumothorax or pleural effusion. IMPRESSION: No evidence of acute process. RADIATION DOSE DELIVERED: Total DLP
== END 2020-10-24 03:56 ==
PROVIDERS: PCP Family Medicine; Visit Provider Internal Medicine Hematology & Oncology
DX: J93.9 Pneumothorax, unspecified (principal)
CPT/HCPCS: 36591; 80053; 71046; 82378; 85025

== ENCOUNTER 2020-11-14 04:25 | Outpatient (RCR) | payer MEDICARE, OTHER, SELFPAY ==
[2020-10-24] MEDS: Normal Saline Flush 10 ML SYR IVP (09:31)
[2020-10-24 09:39] LABS: Abs Immature Grans 0.01 10^3/uL (0.0-0.06); Absolute Basophil Count 0.04 10^3/uL (0.0-0.2); Absolute Eosinophil Count 0.35 10^3/uL (0.0-0.7); Absolute Lymphocyte Count 0.82 10^3/uL (1.2-3.4); Absolute Monocyte Count 1.05 10^3/uL (0.1-0.8); Absolute Neutrophil Count 4.66 10^3/uL (1.2-6.7); Basophils % 0.6; Eosinophils % 5.1; HCT 36.4 % (36.0-46.0); HGB 12.2 g/dL (11.2-15.7); Immature Grans % 0.1; Lymphocytes % 11.8; MCH 32.3 pg (27.0-33.0); MCHC 33.5 % (32.0-36.0); MCV 96.3 fL (80-95); MPV 8.4 fL (8.0-11.0); Monocytes % 15.2; Neutrophils % 67.2; Nucleated RBC 0 %; Platelet Count 374 10^3/uL (130-400); RBC 3.78 10^6/uL (3.93-5.22); RDW 14.1 % (11.7-14.6); RDW-SD 50.1 fL; WBC 6.93 10^3/uL (4.4-10.8)
[2020-10-24 09:52] LABS: ALT 53 U/L (14-59); AST 31 U/L (15-37); Albumin 3.1 g/dL (3.4-5.0); Alkaline Phosphatase 71 U/L (46-116); Anion Gap 8.5 mmol/L (3-11); BUN 18 mg/dL (7-18); Bilirubin, Total 0.2 mg/dL (0.2-1.0); CO2 27.5 mmol/L (21.0-32.0); CREATININE 0.7 mg/dL (0.55-1.02); Calcium 9.3 mg/dL (8.5-10.1); Chloride 101 mmol/L (98-107); Glucose 105 mg/dL (74-106); Potassium 4.1 mmol/L (3.5-5.1); Sodium 137 mmol/L (136-145); Total Protein 7.3 g/dL (6.4-8.2)
[2020-10-24 17:36] LABS: CEA 7.2 ng/mL (See Note)
[2020-10-31 10:54] LABS: Abs Immature Grans 0.02 10^3/uL (0.0-0.06); Absolute Basophil Count 0.04 10^3/uL (0.0-0.2); Absolute Eosinophil Count 0.18 10^3/uL (0.0-0.7); Absolute Lymphocyte Count 1.19 10^3/uL (1.2-3.4); Absolute Monocyte Count 0.73 10^3/uL (0.1-0.8); Absolute Neutrophil Count 4.98 10^3/uL (1.2-6.7); Basophils % 0.6; Eosinophils % 2.5; HCT 34.3 % (36.0-46.0); HGB 11.5 g/dL (11.2-15.7); Immature Grans % 0.3; Lymphocytes % 16.7; MCH 32.8 pg (27.0-33.0); MCHC 33.5 % (32.0-36.0); MCV 97.7 fL (80-95); MPV 8.6 fL (8.0-11.0); Monocytes % 10.2; Neutrophils % 69.7; Nucleated RBC 0 %; Platelet Count 394 10^3/uL (130-400); RBC 3.51 10^6/uL (3.93-5.22); RDW 14.6 % (11.7-14.6); RDW-SD 52.7 fL; WBC 7.14 10^3/uL (4.4-10.8)
[2020-10-31 11:07] LABS: ALT 30 U/L (14-59); AST 19 U/L (15-37); Albumin 3.3 g/dL (3.4-5.0); Alkaline Phosphatase 66 U/L (46-116); BUN 18 mg/dL (7-18); Bilirubin, Total 0.2 mg/dL (0.2-1.0); CREATININE 0.7 mg/dL (0.55-1.02); Calcium 9.4 mg/dL (8.5-10.1); Chloride 102 mmol/L (98-107); Glucose 106 mg/dL (74-106); Potassium 3.9 mmol/L (3.5-5.1); Sodium 137 mmol/L (136-145); Total Protein 7.2 g/dL (6.4-8.2)
[2020-10-31 17:44] LABS: CEA 8.7 ng/mL (See Note)
[2020-11-14] MEDS: Normal Saline Flush 10 ML SYR IVP (10:14)
[2020-11-14 10:21] LABS: Absolute Basophil Count 0.02 10^3/uL (0.0-0.2); Absolute Eosinophil Count 0.21 10^3/uL (0.0-0.7); Absolute Lymphocyte Count 1.15 10^3/uL (1.2-3.4); Absolute Monocyte Count 0.62 10^3/uL (0.1-0.8); Absolute Neutrophil Count 1.84 10^3/uL (1.2-6.7); Basophils % 0.5; Eosinophils % 5.5; HCT 33.3 % (36.0-46.0); HGB 11.2 g/dL (11.2-15.7); Lymphocytes % 29.9; MCH 32.7 pg (27.0-33.0); MCHC 33.6 % (32.0-36.0); MCV 97.4 fL (80-95); MPV 8.8 fL (8.0-11.0); Monocytes % 16.1; Nucleated RBC 0 %; Platelet Count 241 10^3/uL (130-400); RBC 3.42 10^6/uL (3.93-5.22); RDW 14.9 % (11.7-14.6); RDW-SD 52.8 fL; WBC 3.84 10^3/uL (4.4-10.8)
[2020-11-14 10:41] LABS: ALT 43 U/L (14-59); AST 30 U/L (15-37); Albumin 3.4 g/dL (3.4-5.0); Alkaline Phosphatase 76 U/L (46-116); Anion Gap 8.2 mmol/L (3-11); BUN 11 mg/dL (7-18); Bilirubin, Total 0.1 mg/dL (0.2-1.0); CO2 27.8 mmol/L (21.0-32.0); CREATININE 0.8 mg/dL (0.55-1.02); Calcium 9.1 mg/dL (8.5-10.1); Chloride 104 mmol/L (98-107); Glucose 123 mg/dL (74-106); Sodium 140 mmol/L (136-145); Total Protein 6.9 g/dL (6.4-8.2)
[2020-11-14 17:40] LABS: CEA 10.2 ng/mL (See Note)
== END 2020-11-21 23:59 | disposition home or self-care (01) ==
LOC: INF 04:25
PROVIDERS: PCP Family Medicine; Visit Provider Internal Medicine Hematology & Oncology
DX: C20 Malignant neoplasm of rectum (principal); Z45.2 Encounter for adjustment and management of vascular access device
CPT/HCPCS: 36591; 80053; 82378; 85025

== ENCOUNTER 2020-12-12 04:40 | Outpatient (RCR) | payer MEDICARE, OTHER, SELFPAY ==
[2020-11-28] MEDS: Normal Saline Flush 10 ML SYR IVP (09:15)
[2020-11-28 09:34] LABS: Abs Immature Grans 0.01 10^3/uL (0.0-0.06); Absolute Basophil Count 0.03 10^3/uL (0.0-0.2); Absolute Eosinophil Count 0.13 10^3/uL (0.0-0.7); Absolute Lymphocyte Count 1.16 10^3/uL (1.2-3.4); Absolute Monocyte Count 0.88 10^3/uL (0.1-0.8); Absolute Neutrophil Count 1.39 10^3/uL (1.2-6.7); Basophils % 0.8; Eosinophils % 3.6; HCT 32.2 % (36.0-46.0); HGB 10.6 g/dL (11.2-15.7); Immature Grans % 0.3; Lymphocytes % 32.2; MCH 32.7 pg (27.0-33.0); MCHC 32.9 % (32.0-36.0); MCV 99.4 fL (80-95); Monocytes % 24.4; Neutrophils % 38.7; Nucleated RBC 0 %; Platelet Count 180 10^3/uL (130-400); RBC 3.24 10^6/uL (3.93-5.22); RDW 15.2 % (11.7-14.6); RDW-SD 54.1 fL
[2020-11-28 09:48] LABS: ALT 36 U/L (14-59); AST 29 U/L (15-37); Albumin 3.4 g/dL (3.4-5.0); Alkaline Phosphatase 80 U/L (46-116); Anion Gap 8.3 mmol/L (3-11); BUN 11 mg/dL (7-18); Bilirubin, Total 0.3 mg/dL (0.2-1.0); CO2 25.7 mmol/L (21.0-32.0); CREATININE 0.7 mg/dL (0.55-1.02); Calcium 8.8 mg/dL (8.5-10.1); Chloride 105 mmol/L (98-107); Glucose 106 mg/dL (74-106); Potassium 4.2 mmol/L (3.5-5.1); Sodium 139 mmol/L (136-145); Total Protein 6.8 g/dL (6.4-8.2)
[2020-11-28 17:10] LABS: CEA 5.9 ng/mL (See Note)
[2020-12-12] MEDS: Normal Saline Flush 10 ML SYR IVP (08:03)
[2020-12-12 08:16] LABS: Abs Immature Grans 0.01 10^3/uL (0.0-0.06); Absolute Basophil Count 0.05 10^3/uL (0.0-0.2); Absolute Eosinophil Count 0.13 10^3/uL (0.0-0.7); Absolute Lymphocyte Count 1.02 10^3/uL (1.2-3.4); Absolute Monocyte Count 0.85 10^3/uL (0.1-0.8); Basophils % 1.3; Eosinophils % 3.3; HCT 31.7 % (36.0-46.0); HGB 10.8 g/dL (11.2-15.7); Immature Grans % 0.3; Lymphocytes % 25.5; MCH 34.1 pg (27.0-33.0); MCHC 34.1 % (32.0-36.0); Monocytes % 21.3; Neutrophils % 48.3; Nucleated RBC 0 %; Platelet Count 197 10^3/uL (130-400); RBC 3.17 10^6/uL (3.93-5.22); RDW 17.1 % (11.7-14.6); RDW-SD 60.4 fL
[2020-12-12 08:17] LABS: Absolute Neutrophil Count 1.93 10^3/uL (1.2-6.7)
[2020-12-12 08:31] LABS: ALT 53 U/L (14-59); AST 65 U/L (15-37); Albumin 3.3 g/dL (3.4-5.0); Alkaline Phosphatase 80 U/L (46-116); Anion Gap 9.6 mmol/L (3-11); BUN 13 mg/dL (7-18); Bilirubin, Total 0.3 mg/dL (0.2-1.0); CO2 25.4 mmol/L (21.0-32.0); CREATININE 0.7 mg/dL (0.55-1.02); Calcium 8.6 mg/dL (8.5-10.1); Chloride 108 mmol/L (98-107); Glucose 127 mg/dL (74-106); Potassium 4.1 mmol/L (3.5-5.1); Sodium 143 mmol/L (136-145); Total Protein 6.9 g/dL (6.4-8.2)
[2020-12-12 17:05] LABS: CEA 2.7 ng/mL (See Note)
== END 2020-12-22 23:59 | disposition home or self-care (01) ==
LOC: INF 04:40
PROVIDERS: PCP Family Medicine; Visit Provider Internal Medicine Hematology & Oncology
DX: C20 Malignant neoplasm of rectum (principal); Z45.2 Encounter for adjustment and management of vascular access device
CPT/HCPCS: 36591; 80053; 82378; 85025

== ENCOUNTER 2021-01-09 02:22 | Outpatient (RCR) | payer MEDICARE, OTHER, SELFPAY ==
[2020-12-26] MEDS: Normal Saline Flush 10 ML SYR IVP (09:07)
[2020-12-26 09:12] LABS: Abs Immature Grans 0.01 10^3/uL (0.0-0.06); Absolute Basophil Count 0.03 10^3/uL (0.0-0.2); Absolute Eosinophil Count 0.11 10^3/uL (0.0-0.7); Absolute Lymphocyte Count 0.94 10^3/uL (1.2-3.4); Absolute Monocyte Count 0.93 10^3/uL (0.1-0.8); Basophils % 0.8; HCT 29.9 % (36.0-46.0); HGB 10.3 g/dL (11.2-15.7); Immature Grans % 0.3; MCH 35.5 pg (27.0-33.0); MCHC 34.4 % (32.0-36.0); MCV 103.1 fL (80-95); MPV 9.4 fL (8.0-11.0); Monocytes % 25.7; Neutrophils % 44.2; Nucleated RBC 0 %; Platelet Count 163 10^3/uL (130-400); RDW 18.2 % (11.7-14.6); RDW-SD 68.2 fL; WBC 3.62 10^3/uL (4.4-10.8)
[2020-12-26 09:24] LABS: ALT 46 U/L (14-59); AST 50 U/L (15-37); Albumin 3.3 g/dL (3.4-5.0); Alkaline Phosphatase 86 U/L (46-116); Anion Gap 7.4 mmol/L (3-11); BUN 8 mg/dL (7-18); Bilirubin, Total 0.5 mg/dL (0.2-1.0); CO2 26.6 mmol/L (21.0-32.0); CREATININE 0.7 mg/dL (0.55-1.02); Calcium 8.9 mg/dL (8.5-10.1); Chloride 105 mmol/L (98-107); Glucose 103 mg/dL (74-106); Sodium 139 mmol/L (136-145)
[2020-12-26 17:03] LABS: CEA <2.0 ng/mL (See Note)
[2021-01-09] MEDS: Normal Saline Flush 10 ML SYR IVP (07:09)
[2021-01-09 07:15] LABS: Abs Immature Grans 0.01 10^3/uL (0.0-0.06); Absolute Basophil Count 0.02 10^3/uL (0.0-0.2); Absolute Eosinophil Count 0.08 10^3/uL (0.0-0.7); Absolute Lymphocyte Count 0.98 10^3/uL (1.2-3.4); Absolute Monocyte Count 1.03 10^3/uL (0.1-0.8); Absolute Neutrophil Count 2.25 10^3/uL (1.2-6.7); Basophils % 0.5; Eosinophils % 1.8; HCT 31.1 % (36.0-46.0); HGB 10.6 g/dL (11.2-15.7); Immature Grans % 0.2; Lymphocytes % 22.4; MCH 36.1 pg (27.0-33.0); MCHC 34.1 % (32.0-36.0); MCV 105.8 fL (80-95); MPV 9.4 fL (8.0-11.0); Monocytes % 23.6; Neutrophils % 51.5; Nucleated RBC 0 %; Platelet Count 167 10^3/uL (130-400); RBC 2.94 10^6/uL (3.93-5.22); RDW 18.2 % (11.7-14.6); WBC 4.37 10^3/uL (4.4-10.8)
[2021-01-09 07:34] LABS: ALT 33 U/L (14-59); AST 37 U/L (15-37); Albumin 3.3 g/dL (3.4-5.0); Alkaline Phosphatase 73 U/L (46-116); Anion Gap 9.5 mmol/L (3-11); BUN 11 mg/dL (7-18); Bilirubin, Total 0.3 mg/dL (0.2-1.0); CO2 25.5 mmol/L (21.0-32.0); CREATININE 0.6 mg/dL (0.55-1.02); Calcium 9.1 mg/dL (8.5-10.1); Chloride 106 mmol/L (98-107); Diff Comment RBC Morph Reviewed; Glucose 127 mg/dL (74-106); Macrocytosis 1+; Polychromasia Present; Sodium 141 mmol/L (136-145); Total Protein 7.1 g/dL (6.4-8.2)
[2021-01-09 18:00] LABS: CEA <2.0 ng/mL (See Note)
== END 2021-01-21 23:59 | disposition home or self-care (01) ==
LOC: INF 02:22
PROVIDERS: PCP Family Medicine; Visit Provider Internal Medicine Hematology & Oncology
DX: C20 Malignant neoplasm of rectum (principal); Z45.2 Encounter for adjustment and management of vascular access device
CPT/HCPCS: 36591; 80053; 82378; 85025

== ENCOUNTER 2021-02-13 05:07 | Outpatient (RCR) | payer MEDICARE, OTHER, SELFPAY ==
[2021-01-23] MEDS: Normal Saline Flush 10 ML SYR IVP (11:00)
[2021-01-23 11:11] LABS: Abs Immature Grans 0.01 10^3/uL (0.0-0.06); Absolute Basophil Count 0.02 10^3/uL (0.0-0.2); Absolute Eosinophil Count 0.03 10^3/uL (0.0-0.7); Absolute Lymphocyte Count 0.72 10^3/uL (1.2-3.4); Absolute Monocyte Count 0.86 10^3/uL (0.1-0.8); Absolute Neutrophil Count 2.43 10^3/uL (1.2-6.7); Basophils % 0.5; Eosinophils % 0.7; HCT 31.1 % (36.0-46.0); HGB 10.5 g/dL (11.2-15.7); Immature Grans % 0.2; Lymphocytes % 17.7; MCH 36.7 pg (27.0-33.0); MCHC 33.8 % (32.0-36.0); MCV 108.7 fL (80-95); MPV 9.1 fL (8.0-11.0); Monocytes % 21.1; Neutrophils % 59.8; Nucleated RBC 0 %; Platelet Count 122 10^3/uL (130-400); RBC 2.86 10^6/uL (3.93-5.22); RDW 17.2 % (11.7-14.6); RDW-SD 69.3 fL; WBC 4.07 10^3/uL (4.4-10.8)
[2021-01-23 11:23] LABS: ALT 36 U/L (14-59); AST 43 U/L (15-37); Albumin 3.5 g/dL (3.4-5.0); Alkaline Phosphatase 77 U/L (46-116); Anion Gap 10.3 mmol/L (3-11); BUN 11 mg/dL (7-18); Bilirubin, Total 0.4 mg/dL (0.2-1.0); CO2 26.7 mmol/L (21.0-32.0); CREATININE 0.7 mg/dL (0.55-1.02); Calcium 9.1 mg/dL (8.5-10.1); Chloride 102 mmol/L (98-107); Glucose 127 mg/dL (74-106); Potassium 3.7 mmol/L (3.5-5.1); Sodium 139 mmol/L (136-145); Total Protein 7.2 g/dL (6.4-8.2)
[2021-01-23 17:25] LABS: CEA <2.0 ng/mL (See Note)
[2021-02-05] MEDS: Normal Saline Flush 10 ML SYR IVP (11:11)
[2021-02-05] MEDS: Heparin 500 UNITS/5 ML SYRINGE IV (11:11)
[2021-02-05 11:27] LABS: Abs Immature Grans 0.01 10^3/uL (0.0-0.06); Absolute Basophil Count 0.02 10^3/uL (0.0-0.2); Absolute Eosinophil Count 0.04 10^3/uL (0.0-0.7); Absolute Lymphocyte Count 0.73 10^3/uL (1.2-3.4); Absolute Monocyte Count 1.05 10^3/uL (0.1-0.8); Basophils % 0.5; HCT 30.4 % (36.0-46.0); HGB 10.4 g/dL (11.2-15.7); Immature Grans % 0.2; Lymphocytes % 17.6; MCH 37.7 pg (27.0-33.0); MCHC 34.2 % (32.0-36.0); MCV 110.1 fL (80-95); Monocytes % 25.3; Neutrophils % 55.4; Nucleated RBC 0 %; Platelet Count 135 10^3/uL (130-400); RBC 2.76 10^6/uL (3.93-5.22); RDW 16.1 % (11.7-14.6); RDW-SD 64.9 fL; WBC 4.15 10^3/uL (4.4-10.8)
[2021-02-05 11:43] LABS: ALT 36 U/L (14-59); AST 43 U/L (15-37); Albumin 3.4 g/dL (3.4-5.0); Alkaline Phosphatase 73 U/L (46-116); Anion Gap 8.3 mmol/L (3-11); BUN 11 mg/dL (7-18); Bilirubin, Total 0.3 mg/dL (0.2-1.0); CO2 25.7 mmol/L (21.0-32.0); CREATININE 0.7 mg/dL (0.55-1.02); Chloride 103 mmol/L (98-107); Glucose 110 mg/dL (74-106); Sodium 137 mmol/L (136-145); Total Protein 7.2 g/dL (6.4-8.2)
[2021-02-06 09:35] LABS: CEA <2.0 ng/mL (See Note)
== END 2021-02-21 23:59 | disposition home or self-care (01) ==
LOC: INF 05:07
PROVIDERS: PCP Family Medicine; Visit Provider Internal Medicine Hematology & Oncology
DX: C20 Malignant neoplasm of rectum (principal); Z45.2 Encounter for adjustment and management of vascular access device
CPT/HCPCS: 36591; 80053; 82378; 85025

== ENCOUNTER 2021-03-13 08:00 | Outpatient (RCR) | payer MEDICARE, OTHER, SELFPAY ==
[2021-03-06 09:00] LABS: Abs Immature Grans 0.02 10^3/uL (0.0-0.06); Absolute Basophil Count 0.04 10^3/uL (0.0-0.2); Absolute Eosinophil Count 0.07 10^3/uL (0.0-0.7); Absolute Lymphocyte Count 0.63 10^3/uL (1.2-3.4); Absolute Monocyte Count 0.96 10^3/uL (0.1-0.8); Absolute Neutrophil Count 3.04 10^3/uL (1.2-6.7); Basophils % 0.8; Eosinophils % 1.5; HCT 36.3 % (36.0-46.0); HGB 12.1 g/dL (11.2-15.7); Immature Grans % 0.4; Lymphocytes % 13.2; MCH 37.1 pg (27.0-33.0); MCHC 33.3 % (32.0-36.0); MCV 111.3 fL (80-95); MPV 9.2 fL (8.0-11.0); Monocytes % 20.2; Neutrophils % 63.9; Nucleated RBC 0 %; Platelet Count 221 10^3/uL (130-400); RBC 3.26 10^6/uL (3.93-5.22); RDW 13.3 % (11.7-14.6); RDW-SD 55.2 fL; WBC 4.76 10^3/uL (4.4-10.8)
[2021-03-06] MEDS: Heparin 500 UNITS/5 ML SYRINGE IVP (09:04)
[2021-03-06] MEDS: Normal Saline Flush 10 ML SYR IVP (09:04)
[2021-03-06 09:12] LABS: ALT 28 U/L (14-59); AST 34 U/L (15-37); Albumin 3.6 g/dL (3.4-5.0); Alkaline Phosphatase 90 U/L (46-116); Anion Gap 6.4 mmol/L (3-11); BUN 13 mg/dL (7-18); Bilirubin, Total 0.3 mg/dL (0.2-1.0); CO2 26.6 mmol/L (21.0-32.0); CREATININE 0.7 mg/dL (0.55-1.02); Calcium 9.2 mg/dL (8.5-10.1); Chloride 104 mmol/L (98-107); Glucose 113 mg/dL (74-106); Potassium 4.1 mmol/L (3.5-5.1); Sodium 137 mmol/L (136-145); Total Protein 7.7 g/dL (6.4-8.2)
[2021-03-06 17:24] LABS: CEA <2.0 ng/mL (See Note)
[2021-03-13] MEDS: Normal Saline Flush 10 ML SYR IVP (08:35)
[2021-03-13] MEDS: Heparin 500 UNITS/5 ML SYRINGE IVP (08:35)
[2021-03-13 08:42] LABS: Abs Immature Grans 0.01 10^3/uL (0.0-0.06); Absolute Basophil Count 0.02 10^3/uL (0.0-0.2); Absolute Eosinophil Count 0.05 10^3/uL (0.0-0.7); Absolute Lymphocyte Count 0.41 10^3/uL (1.2-3.4); Absolute Monocyte Count 0.53 10^3/uL (0.1-0.8); Absolute Neutrophil Count 2.24 10^3/uL (1.2-6.7); Basophils % 0.6; Eosinophils % 1.5; HCT 32.5 % (36.0-46.0); HGB 11.2 g/dL (11.2-15.7); Immature Grans % 0.3; Lymphocytes % 12.6; MCH 38.6 pg (27.0-33.0); MCHC 34.5 % (32.0-36.0); MCV 112.1 fL (80-95); Monocytes % 16.3; Neutrophils % 68.7; Nucleated RBC 0 %; Platelet Count 202 10^3/uL (130-400); RDW 12.7 % (11.7-14.6); RDW-SD 52.4 fL; WBC 3.26 10^3/uL (4.4-10.8)
[2021-03-13 08:53] LABS: ALT 30 U/L (14-59); AST 28 U/L (15-37); Albumin 3.5 g/dL (3.4-5.0); Alkaline Phosphatase 89 U/L (46-116); Anion Gap 7.2 mmol/L (3-11); BUN 11 mg/dL (7-18); Bilirubin, Total 0.3 mg/dL (0.2-1.0); CO2 26.8 mmol/L (21.0-32.0); CREATININE 0.7 mg/dL (0.55-1.02); Calcium 8.9 mg/dL (8.5-10.1); Chloride 106 mmol/L (98-107); Glucose 124 mg/dL (74-106); Sodium 140 mmol/L (136-145); Total Protein 7.3 g/dL (6.4-8.2)
[2021-03-13 09:04] LABS: Diff Comment RBC Morph Reviewed; Macrocytosis 2+
== END 2021-03-24 23:59 | disposition home or self-care (01) ==
LOC: INF 08:00
PROVIDERS: PCP Family Medicine; Visit Provider Internal Medicine Hematology & Oncology
DX: C20 Malignant neoplasm of rectum (principal); Z45.2 Encounter for adjustment and management of vascular access device
CPT/HCPCS: 36415; 36591; 80053; 82378; 85025

== ENCOUNTER 2021-03-20 02:37 | Outpatient (CLI) | payer MEDICARE, OTHER, SELFPAY ==
[2021-03-20 08:51] LABS: Abs Immature Grans 0.03 10^3/uL (0.0-0.06); Absolute Basophil Count 0.02 10^3/uL (0.0-0.2); Absolute Eosinophil Count 0.13 10^3/uL (0.0-0.7); Absolute Lymphocyte Count 0.32 10^3/uL (1.2-3.4); Absolute Monocyte Count 0.53 10^3/uL (0.1-0.8); Absolute Neutrophil Count 2.37 10^3/uL (1.2-6.7); Basophils % 0.6; Eosinophils % 3.8; HGB 10.8 g/dL (11.2-15.7); Immature Grans % 0.9; Lymphocytes % 9.4; MCH 37.9 pg (27.0-33.0); MCHC 33.8 % (32.0-36.0); MCV 112.3 fL (80-95); MPV 8.5 fL (8.0-11.0); Monocytes % 15.6; Neutrophils % 69.7; Nucleated RBC 0 %; Platelet Count 178 10^3/uL (130-400); RBC 2.85 10^6/uL (3.93-5.22); RDW 13.1 % (11.7-14.6); RDW-SD 53.9 fL
[2021-03-20 09:06] LABS: ALT 30 U/L (14-59); AST 37 U/L (15-37); Albumin 3.4 g/dL (3.4-5.0); Alkaline Phosphatase 78 U/L (46-116); Anion Gap 8.7 mmol/L (3-11); BUN 11 mg/dL (7-18); Bilirubin, Total 0.3 mg/dL (0.2-1.0); CO2 27.3 mmol/L (21.0-32.0); CREATININE 0.7 mg/dL (0.55-1.02); Calcium 8.9 mg/dL (8.5-10.1); Chloride 103 mmol/L (98-107); Glucose 116 mg/dL (74-106); Potassium 3.9 mmol/L (3.5-5.1); Sodium 139 mmol/L (136-145)
== END 2021-03-20 02:38 | disposition home or self-care (01) ==
LOC: LBO 02:38
PROVIDERS: Internal Medicine Hematology & Oncology; PCP Family Medicine; Visit Provider Nurse Practitioner Family
DX: C20 Malignant neoplasm of rectum (principal); C78.00 Secondary malignant neoplasm of unspecified lung
CPT/HCPCS: 36415; 80053; 85025

== ENCOUNTER 2021-03-27 03:24 | Outpatient (CLI) | payer MEDICARE, OTHER, SELFPAY ==
[2021-03-27 08:46] LABS: Abs Immature Grans 0.01 10^3/uL (0.0-0.06); Absolute Basophil Count 0.02 10^3/uL (0.0-0.2); Absolute Eosinophil Count 0.23 10^3/uL (0.0-0.7); Absolute Lymphocyte Count 0.27 10^3/uL (1.2-3.4); Absolute Monocyte Count 0.46 10^3/uL (0.1-0.8); Absolute Neutrophil Count 1.19 10^3/uL (1.2-6.7); Basophils % 0.9; Eosinophils % 10.6; HCT 32.8 % (36.0-46.0); Immature Grans % 0.5; Lymphocytes % 12.4; MCH 37.8 pg (27.0-33.0); MCHC 33.5 % (32.0-36.0); MCV 112.7 fL (80-95); MPV 8.6 fL (8.0-11.0); Monocytes % 21.1; Neutrophils % 54.5; Nucleated RBC 0 %; Platelet Count 202 10^3/uL (130-400); RBC 2.91 10^6/uL (3.93-5.22); RDW 13.7 % (11.7-14.6); RDW-SD 56.8 fL; WBC 2.18 10^3/uL (4.4-10.8)
[2021-03-27 09:00] LABS: ALT 31 U/L (14-59); AST 30 U/L (15-37); Albumin 3.6 g/dL (3.4-5.0); Alkaline Phosphatase 77 U/L (46-116); Anion Gap 6.4 mmol/L (3-11); BUN 10 mg/dL (7-18); Bilirubin, Total 0.3 mg/dL (0.2-1.0); CO2 28.6 mmol/L (21.0-32.0); CREATININE 0.7 mg/dL (0.55-1.02); Calcium 8.8 mg/dL (8.5-10.1); Chloride 106 mmol/L (98-107); Glucose 93 mg/dL (74-106); Potassium 3.9 mmol/L (3.5-5.1); Sodium 141 mmol/L (136-145); Total Protein 7.3 g/dL (6.4-8.2)
== END 2021-03-27 03:25 | disposition home or self-care (01) ==
LOC: LBO 03:24
PROVIDERS: PCP Family Medicine; Visit Provider Internal Medicine Hematology & Oncology
DX: C20 Malignant neoplasm of rectum (principal); C78.00 Secondary malignant neoplasm of unspecified lung
CPT/HCPCS: 36415; 80053; 85025

== ENCOUNTER 2021-04-03 03:24 | Outpatient (CLI) | payer MEDICARE, OTHER, SELFPAY ==
[2021-04-03 09:31] LABS: Abs Immature Grans 0.03 10^3/uL (0.0-0.06); Absolute Basophil Count 0.01 10^3/uL (0.0-0.2); Absolute Eosinophil Count 0.17 10^3/uL (0.0-0.7); Absolute Lymphocyte Count 0.25 10^3/uL (1.2-3.4); Absolute Monocyte Count 0.74 10^3/uL (0.1-0.8); Basophils % 0.3; Eosinophils % 4.3; HCT 30.2 % (36.0-46.0); HGB 10.5 g/dL (11.2-15.7); Immature Grans % 0.8; Lymphocytes % 6.3; MCHC 34.8 % (32.0-36.0); MCV 112.3 fL (80-95); MPV 8.4 fL (8.0-11.0); Monocytes % 18.5; Neutrophils % 69.8; Nucleated RBC 0 %; Platelet Count 188 10^3/uL (130-400); RBC 2.69 10^6/uL (3.93-5.22); RDW 14.2 % (11.7-14.6); RDW-SD 58.4 fL
[2021-04-03 09:44] LABS: ALT 34 U/L (14-59); AST 34 U/L (15-37); Albumin 3.3 g/dL (3.4-5.0); Alkaline Phosphatase 76 U/L (46-116); Anion Gap 6.3 mmol/L (3-11); BUN 10 mg/dL (7-18); Bilirubin, Total 0.4 mg/dL (0.2-1.0); CO2 28.7 mmol/L (21.0-32.0); CREATININE 0.8 mg/dL (0.55-1.02); Calcium 8.5 mg/dL (8.5-10.1); Chloride 104 mmol/L (98-107); Glucose 109 mg/dL (74-106); Potassium 3.4 mmol/L (3.5-5.1); Sodium 139 mmol/L (136-145); Total Protein 6.8 g/dL (6.4-8.2)
[2021-04-03 09:49] LABS: Absolute Neutrophil Count 2.79 10^3/uL (1.2-6.7)
[2021-04-03 10:00] LABS: Diff Comment Diff Reviewed; Macrocytosis 2+; Polychromasia Present
[2021-04-03 10:01] LABS: Poikilocytes 2+
== END 2021-04-03 03:25 | disposition home or self-care (01) ==
LOC: LBO 03:24
PROVIDERS: PCP Family Medicine; Visit Provider Internal Medicine Hematology & Oncology
DX: C20 Malignant neoplasm of rectum (principal); C78.00 Secondary malignant neoplasm of unspecified lung
CPT/HCPCS: 36415; 80053; 85025

== ENCOUNTER 2021-04-10 02:25 | Outpatient (CLI) | payer MEDICARE, OTHER, SELFPAY ==
[2021-04-10 08:38] LABS: Abs Immature Grans 0.03 10^3/uL (0.0-0.06); Absolute Basophil Count 0.02 10^3/uL (0.0-0.2); Absolute Eosinophil Count 0.24 10^3/uL (0.0-0.7); Absolute Lymphocyte Count 0.22 10^3/uL (1.2-3.4); Absolute Monocyte Count 0.68 10^3/uL (0.1-0.8); Basophils % 0.5; HCT 31.5 % (36.0-46.0); HGB 10.5 g/dL (11.2-15.7); Immature Grans % 0.8; Lymphocytes % 5.5; MCH 37.8 pg (27.0-33.0); MCHC 33.3 % (32.0-36.0); MCV 113.3 fL (80-95); MPV 8.2 fL (8.0-11.0); Neutrophils % 70.2; Nucleated RBC 0 %; Platelet Count 223 10^3/uL (130-400); RBC 2.78 10^6/uL (3.93-5.22); RDW 14.4 % (11.7-14.6); RDW-SD 59.9 fL; WBC 3.99 10^3/uL (4.4-10.8)
[2021-04-10 09:04] LABS: ALT 26 U/L (14-59); AST 24 U/L (15-37); Albumin 3.4 g/dL (3.4-5.0); Alkaline Phosphatase 80 U/L (46-116); Anion Gap 8.2 mmol/L (3-11); BUN 11 mg/dL (7-18); Bilirubin, Total 0.6 mg/dL (0.2-1.0); CO2 27.8 mmol/L (21.0-32.0); CREATININE 0.6 mg/dL (0.55-1.02); Calcium 8.8 mg/dL (8.5-10.1); Chloride 104 mmol/L (98-107); Glucose 107 mg/dL (74-106); Potassium 3.8 mmol/L (3.5-5.1); Sodium 140 mmol/L (136-145); Total Protein 6.9 g/dL (6.4-8.2)
== END 2021-04-10 02:26 | disposition home or self-care (01) ==
LOC: LBO 02:25
PROVIDERS: PCP Family Medicine; Visit Provider Internal Medicine Hematology & Oncology
DX: C20 Malignant neoplasm of rectum (principal); C78.00 Secondary malignant neoplasm of unspecified lung
CPT/HCPCS: 36415; 80053; 85025

== ENCOUNTER 2021-04-17 02:58 | Outpatient (CLI) | payer MEDICARE, OTHER, SELFPAY ==
[2021-04-17 08:36] LABS: Abs Immature Grans 0.03 10^3/uL (0.0-0.06); Absolute Basophil Count 0.02 10^3/uL (0.0-0.2); Absolute Eosinophil Count 0.13 10^3/uL (0.0-0.7); Absolute Lymphocyte Count 0.22 10^3/uL (1.2-3.4); Absolute Monocyte Count 0.81 10^3/uL (0.1-0.8); Basophils % 0.5; HCT 30.3 % (36.0-46.0); HGB 10.2 g/dL (11.2-15.7); Immature Grans % 0.7; Lymphocytes % 5.1; MCH 38.5 pg (27.0-33.0); MCHC 33.7 % (32.0-36.0); MCV 114.3 fL (80-95); MPV 8.2 fL (8.0-11.0); Monocytes % 18.7; Nucleated RBC 0 %; Platelet Count 222 10^3/uL (130-400); RBC 2.65 10^6/uL (3.93-5.22); RDW 14.7 % (11.7-14.6); RDW-SD 61.5 fL; WBC 4.34 10^3/uL (4.4-10.8)
[2021-04-17 08:37] LABS: Absolute Neutrophil Count 3.12 10^3/uL (1.2-6.7)
[2021-04-17 08:49] LABS: ALT 24 U/L (14-59); AST 25 U/L (15-37); Albumin 3.2 g/dL (3.4-5.0); Alkaline Phosphatase 69 U/L (46-116); Anion Gap 7.5 mmol/L (3-11); BUN 9 mg/dL (7-18); Bilirubin, Total 0.4 mg/dL (0.2-1.0); CO2 28.5 mmol/L (21.0-32.0); CREATININE 0.6 mg/dL (0.55-1.02); Calcium 8.7 mg/dL (8.5-10.1); Chloride 105 mmol/L (98-107); Glucose 98 mg/dL (74-106); Potassium 4.1 mmol/L (3.5-5.1); Sodium 141 mmol/L (136-145); Total Protein 6.6 g/dL (6.4-8.2)
== END 2021-04-17 02:59 | disposition home or self-care (01) ==
LOC: LBO 02:58
PROVIDERS: PCP Family Medicine; Visit Provider Internal Medicine Hematology & Oncology
DX: C20 Malignant neoplasm of rectum (principal); C78.00 Secondary malignant neoplasm of unspecified lung
CPT/HCPCS: 36415; 80053; 85025

== ENCOUNTER 2021-05-06 10:46 | Outpatient (RCR) | payer MEDICARE, OTHER, SELFPAY ==
[2021-05-06] MEDS: Heparin 500 UNITS/5 ML SYRINGE IV (11:38)
[2021-05-06] MEDS: Normal Saline Flush 10 ML SYR IVP (11:38)
== END 2021-05-24 23:59 | disposition home or self-care (01) ==
LOC: INF 10:46
PROVIDERS: PCP Family Medicine; Visit Provider Internal Medicine Hematology & Oncology
DX: Z45.2 Encounter for adjustment and management of vascular access device (principal)
CPT/HCPCS: 96523

== ENCOUNTER 2021-07-22 02:31 | Outpatient (CLI) | payer MEDICARE, OTHER, SELFPAY ==
[2021-07-22 13:39] LABS: Abs Immature Grans 0.01 10^3/uL (0.0-0.06); Absolute Basophil Count 0.04 10^3/uL (0.0-0.2); Absolute Eosinophil Count 0.23 10^3/uL (0.0-0.7); Absolute Lymphocyte Count 0.64 10^3/uL (1.2-3.4); Absolute Monocyte Count 0.79 10^3/uL (0.1-0.8); Absolute Neutrophil Count 3.47 10^3/uL (1.2-6.7); Basophils % 0.8; Eosinophils % 4.4; HCT 38.4 % (36.0-46.0); HGB 12.4 g/dL (11.2-15.7); Immature Grans % 0.2; Lymphocytes % 12.4; MCH 33.7 pg (27.0-33.0); MCHC 32.3 % (32.0-36.0); MCV 104.3 fL (80-95); MPV 8.3 fL (8.0-11.0); Monocytes % 15.3; Neutrophils % 66.9; Nucleated RBC 0 %; Platelet Count 295 10^3/uL (130-400); RBC 3.68 10^6/uL (3.93-5.22); RDW 12.4 % (11.7-14.6); RDW-SD 48.2 fL; WBC 5.18 10^3/uL (4.4-10.8)
[2021-07-22 13:51] LABS: ALT 22 U/L (14-59); AST 24 U/L (15-37); Albumin 3.3 g/dL (3.4-5.0); Alkaline Phosphatase 75 U/L (46-116); Anion Gap 6.4 mmol/L (3-11); BUN 14 mg/dL (7-18); Bilirubin, Total 0.3 mg/dL (0.2-1.0); CO2 29.6 mmol/L (21.0-32.0); CREATININE 0.7 mg/dL (0.55-1.02); Calcium 8.9 mg/dL (8.5-10.1); Chloride 103 mmol/L (98-107); Glucose 93 mg/dL (74-106); Potassium 3.7 mmol/L (3.5-5.1); Sodium 139 mmol/L (136-145)
[2021-07-22 22:45] LABS: CEA 1.1 ng/mL (See Note)
== END 2021-07-22 02:32 | disposition home or self-care (01) ==
LOC: LBO 02:31
PROVIDERS: PCP Family Medicine; Visit Provider Internal Medicine Hematology & Oncology
DX: C20 Malignant neoplasm of rectum (principal)
CPT/HCPCS: 36415; 80053; 82378; 85025

== ENCOUNTER 2022-01-22 16:26 | Outpatient (CLI) | payer MEDICARE, OTHER, SELFPAY ==
[2022-01-22 14:33] LABS: Abs Immature Grans 0.05 10^3/uL (0.0-0.06); Absolute Basophil Count 0.03 10^3/uL (0.0-0.2); Absolute Eosinophil Count 0.09 10^3/uL (0.0-0.7); Absolute Lymphocyte Count 0.99 10^3/uL (1.2-3.4); Absolute Monocyte Count 1.11 10^3/uL (0.1-0.8); Absolute Neutrophil Count 6.18 10^3/uL (1.2-6.7); Basophils % 0.4; Eosinophils % 1.1; HCT 31.8 % (36.0-46.0); HGB 10.2 g/dL (11.2-15.7); Immature Grans % 0.6; Lymphocytes % 11.7; MCH 30.6 pg (27.0-33.0); MCHC 32.1 % (32.0-36.0); MCV 96 fL (80-95); MPV 8.1 fL (8.0-11.0); Monocytes % 13.1; Neutrophils % 73.1; Platelet Count 564 10^3/uL (130-400); RBC 3.33 10^6/uL (3.93-5.22); RDW 14.1 % (11.7-14.6); RDW-SD 49.8 fL; WBC 8.45 10^3/uL (4.4-10.8)
[2022-01-22 14:48] LABS: ALT 21 U/L (14-59); AST 19 U/L (15-37); Albumin 2.7 g/dL (3.4-5.0); Alkaline Phosphatase 79 U/L (46-116); Anion Gap 9.4 mmol/L (3-11); BUN 16 mg/dL (7-18); Bilirubin, Total 0.1 mg/dL (0.2-1.0); CO2 26.6 mmol/L (21.0-32.0); CREATININE 0.7 mg/dL (0.55-1.02); Calcium 9.4 mg/dL (8.5-10.1); Chloride 99 mmol/L (98-107); Glucose 109 mg/dL (74-106); Potassium 4.1 mmol/L (3.5-5.1); Sodium 135 mmol/L (136-145); Total Protein 7.6 g/dL (6.4-8.2)
[2022-01-22 23:20] LABS: CEA <0.5 ng/mL (See Note)
== END 2022-01-22 16:27 | disposition home or self-care (01) ==
LOC: LBO 16:31
PROVIDERS: PCP Family Medicine; Visit Provider Internal Medicine Hematology & Oncology
DX: C20 Malignant neoplasm of rectum (principal); C78.00 Secondary malignant neoplasm of unspecified lung
CPT/HCPCS: 36415; 80053; 82378; 85025

== ENCOUNTER 2022-06-18 00:54 | Outpatient (RCR) | payer MEDICARE, OTHER, SELFPAY ==
[2022-06-04] MEDS: Normal Saline Flush 10 ML SYR IVP (07:36)
[2022-06-04 07:52] LABS: Abs Immature Grans 0.01 10^3/uL (0.0-0.06); Absolute Basophil Count 0.04 10^3/uL (0.0-0.2); Absolute Lymphocyte Count 1.04 10^3/uL (1.2-3.4); Absolute Monocyte Count 0.61 10^3/uL (0.1-0.8); Absolute Neutrophil Count 3.36 10^3/uL (1.2-6.7); Basophils % 0.8; Eosinophils % 3.8; HCT 36.7 % (36.0-46.0); HGB 12.1 g/dL (11.2-15.7); Immature Grans % 0.2; Lymphocytes % 19.8; MCH 32.1 pg (27.0-33.0); MCV 97 fL (80-95); MPV 8.9 fL (8.0-11.0); Monocytes % 11.6; Neutrophils % 63.8; Platelet Count 288 10^3/uL (130-400); RBC 3.77 10^6/uL (3.93-5.22); RDW 14.7 % (11.7-14.6); RDW-SD 53.1 fL; WBC 5.26 10^3/uL (4.4-10.8)
[2022-06-04 08:08] LABS: ALT 37 U/L (14-59); AST 35 U/L (15-37); Albumin 3.5 g/dL (3.4-5.0); Alkaline Phosphatase 77 U/L (46-116); Anion Gap 6.8 mmol/L (3-11); BUN 17 mg/dL (7-18); Bilirubin, Total 0.5 mg/dL (0.2-1.0); CO2 27.2 mmol/L (21.0-32.0); CREATININE 0.6 mg/dL (0.55-1.02); Calcium 8.9 mg/dL (8.5-10.1); Chloride 104 mmol/L (98-107); Glucose 103 mg/dL (74-106); Potassium 4.1 mmol/L (3.5-5.1); Sodium 138 mmol/L (136-145); Total Protein 7.3 g/dL (6.4-8.2)
[2022-06-04 19:56] LABS: CEA 3.9 ng/mL (See Note)
[2022-06-18] MEDS: Normal Saline Flush 10 ML SYR IVP (07:59)
[2022-06-18 08:06] LABS: Abs Immature Grans 0.01 10^3/uL (0.0-0.06); Absolute Basophil Count 0.04 10^3/uL (0.0-0.2); Absolute Eosinophil Count 0.27 10^3/uL (0.0-0.7); Absolute Lymphocyte Count 0.83 10^3/uL (1.2-3.4); Absolute Monocyte Count 0.61 10^3/uL (0.1-0.8); Absolute Neutrophil Count 2.11 10^3/uL (1.2-6.7); HCT 35.5 % (36.0-46.0); HGB 12.2 g/dL (11.2-15.7); Immature Grans % 0.3; Lymphocytes % 21.4; MCH 33.1 pg (27.0-33.0); MCHC 34.4 % (32.0-36.0); MCV 96 fL (80-95); MPV 8.4 fL (8.0-11.0); Monocytes % 15.8; Neutrophils % 54.5; Platelet Count 260 10^3/uL (130-400); RBC 3.69 10^6/uL (3.93-5.22); RDW 15.3 % (11.7-14.6); RDW-SD 52.8 fL; WBC 3.87 10^3/uL (4.4-10.8)
[2022-06-18 08:47] LABS: ALT 30 U/L (14-59); AST 28 U/L (15-37); Albumin 3.4 g/dL (3.4-5.0); Alkaline Phosphatase 71 U/L (46-116); Anion Gap 6.3 mmol/L (3-11); BUN 14 mg/dL (7-18); Bilirubin, Total 0.4 mg/dL (0.2-1.0); CO2 27.7 mmol/L (21.0-32.0); CREATININE 0.5 mg/dL (0.55-1.02); Calcium 8.9 mg/dL (8.5-10.1); Chloride 100 mmol/L (98-107); Estimated GFR 100.84 (mL/min/1.73m2); Glucose 101 mg/dL (74-106); Sodium 134 mmol/L (136-145); Total Protein 7.1 g/dL (6.4-8.2)
[2022-06-18 18:47] LABS: CEA 3.6 ng/mL (See Note)
== END 2022-06-23 23:59 | disposition home or self-care (01) ==
LOC: INF 00:54
PROVIDERS: PCP Family Medicine; Visit Provider Internal Medicine Hematology & Oncology
DX: C20 Malignant neoplasm of rectum (principal); Z45.2 Encounter for adjustment and management of vascular access device
CPT/HCPCS: 36591; 80053; 96523; 82378; 85025

== ENCOUNTER 2022-07-16 00:52 | Outpatient (RCR) | payer MEDICARE, OTHER, SELFPAY ==
[2022-07-02] MEDS: Normal Saline Flush 10 ML SYR IVP (08:52)
[2022-07-02 09:09] LABS: Abs Immature Grans 0.01 10^3/uL (0.0-0.06); Absolute Basophil Count 0.04 10^3/uL (0.0-0.2); Absolute Eosinophil Count 0.46 10^3/uL (0.0-0.7); Absolute Lymphocyte Count 0.77 10^3/uL (1.2-3.4); Absolute Monocyte Count 0.75 10^3/uL (0.1-0.8); Absolute Neutrophil Count 2.56 10^3/uL (1.2-6.7); Basophils % 0.9; HCT 33.7 % (36.0-46.0); HGB 11.3 g/dL (11.2-15.7); Immature Grans % 0.2; Lymphocytes % 16.8; MCH 32.8 pg (27.0-33.0); MCHC 33.5 % (32.0-36.0); MCV 98 fL (80-95); MPV 8.6 fL (8.0-11.0); Monocytes % 16.3; Neutrophils % 55.8; Platelet Count 279 10^3/uL (130-400); RBC 3.45 10^6/uL (3.93-5.22); RDW 16.4 % (11.7-14.6); RDW-SD 58.1 fL; WBC 4.59 10^3/uL (4.4-10.8)
[2022-07-02 09:27] LABS: ALT 31 U/L (14-59); AST 27 U/L (15-37); Albumin 3.3 g/dL (3.4-5.0); Alkaline Phosphatase 68 U/L (46-116); Anion Gap 7.9 mmol/L (3-11); BUN 15 mg/dL (7-18); Bilirubin, Total 0.2 mg/dL (0.2-1.0); CO2 27.1 mmol/L (21.0-32.0); CREATININE 0.7 mg/dL (0.55-1.02); Calcium 9.4 mg/dL (8.5-10.1); Chloride 104 mmol/L (98-107); Estimated GFR 92.98 (mL/min/1.73m2); Glucose 106 mg/dL (74-106); Sodium 139 mmol/L (136-145); Total Protein 6.7 g/dL (6.4-8.2)
[2022-07-02 20:24] LABS: CEA 3.6 ng/mL (See Note)
[2022-07-16] MEDS: Normal Saline Flush 10 ML SYR IVP (09:30)
[2022-07-16 09:43] LABS: Abs Immature Grans 0.05 10^3/uL (0.0-0.06); Absolute Basophil Count 0.06 10^3/uL (0.0-0.2); Absolute Eosinophil Count 0.28 10^3/uL (0.0-0.7); Absolute Lymphocyte Count 0.65 10^3/uL (1.2-3.4); Absolute Neutrophil Count 5.61 10^3/uL (1.2-6.7); Basophils % 0.8; Eosinophils % 3.8; HCT 33.3 % (36.0-46.0); HGB 11.3 g/dL (11.2-15.7); Immature Grans % 0.7; Lymphocytes % 8.7; MCH 33.1 pg (27.0-33.0); MCHC 33.9 % (32.0-36.0); MCV 98 fL (80-95); MPV 8.5 fL (8.0-11.0); Monocytes % 10.7; Neutrophils % 75.3; Platelet Count 274 10^3/uL (130-400); RBC 3.41 10^6/uL (3.93-5.22); RDW 16.6 % (11.7-14.6); RDW-SD 59.4 fL; WBC 7.45 10^3/uL (4.4-10.8)
[2022-07-16 09:56] LABS: ALT 35 U/L (14-59); AST 32 U/L (15-37); Albumin 3.2 g/dL (3.4-5.0); Alkaline Phosphatase 77 U/L (46-116); Anion Gap 7.3 mmol/L (3-11); BUN 16 mg/dL (7-18); Bilirubin, Total 0.3 mg/dL (0.2-1.0); CO2 27.7 mmol/L (21.0-32.0); CREATININE 0.6 mg/dL (0.55-1.02); Calcium 8.8 mg/dL (8.5-10.1); Chloride 103 mmol/L (98-107); Glucose 114 mg/dL (74-106); Potassium 4.3 mmol/L (3.5-5.1); Sodium 138 mmol/L (136-145); Total Protein 6.8 g/dL (6.4-8.2)
[2022-07-16 20:18] LABS: CEA 4.7 ng/mL (See Note)
== END 2022-07-24 23:59 | disposition home or self-care (01) ==
LOC: INF 00:52
PROVIDERS: PCP Family Medicine; Visit Provider Internal Medicine Hematology & Oncology
DX: C20 Malignant neoplasm of rectum (principal); Z45.2 Encounter for adjustment and management of vascular access device
CPT/HCPCS: 36591; 80053; 82378; 85025

== ENCOUNTER 2022-08-13 01:10 | Outpatient (RCR) | payer MEDICARE, OTHER, SELFPAY ==
[2022-07-30] MEDS: Normal Saline Flush 10 ML SYR IVP (09:41)
[2022-07-30 09:51] LABS: Abs Immature Grans 0.01 10^3/uL (0.0-0.06); Absolute Basophil Count 0.05 10^3/uL (0.0-0.2); Absolute Eosinophil Count 0.58 10^3/uL (0.0-0.7); Absolute Lymphocyte Count 0.63 10^3/uL (1.2-3.4); Absolute Monocyte Count 0.74 10^3/uL (0.1-0.8); Absolute Neutrophil Count 1.52 10^3/uL (1.2-6.7); Basophils % 1.4; Eosinophils % 16.4; HCT 33.2 % (36.0-46.0); HGB 11.2 g/dL (11.2-15.7); Immature Grans % 0.3; Lymphocytes % 17.8; MCH 33.7 pg (27.0-33.0); MCHC 33.7 % (32.0-36.0); MCV 100 fL (80-95); MPV 8.5 fL (8.0-11.0); Neutrophils % 43.1; Platelet Count 294 10^3/uL (130-400); RBC 3.32 10^6/uL (3.93-5.22); RDW-SD 60.9 fL; WBC 3.53 10^3/uL (4.4-10.8)
[2022-07-30 10:10] LABS: ALT 24 U/L (14-59); AST 26 U/L (15-37); Albumin 3.1 g/dL (3.4-5.0); Alkaline Phosphatase 79 U/L (46-116); Anion Gap 6.1 mmol/L (3-11); BUN 14 mg/dL (7-18); Bilirubin, Total 0.2 mg/dL (0.2-1.0); CO2 27.9 mmol/L (21.0-32.0); CREATININE 0.8 mg/dL (0.55-1.02); Calcium 9.2 mg/dL (8.5-10.1); Chloride 102 mmol/L (98-107); Estimated GFR 79.22 (mL/min/1.73m2); Glucose 109 mg/dL (74-106); Potassium 4.4 mmol/L (3.5-5.1); Sodium 136 mmol/L (136-145)
[2022-07-30 21:16] LABS: CEA 5.2 ng/mL (See Note)
[2022-08-13] MEDS: Normal Saline Flush 10 ML SYR IVP (07:26)
[2022-08-13 07:53] LABS: Abs Immature Grans 0.02 10^3/uL (0.0-0.06); Absolute Basophil Count 0.04 10^3/uL (0.0-0.2); Absolute Eosinophil Count 0.37 10^3/uL (0.0-0.7); Absolute Lymphocyte Count 0.73 10^3/uL (1.2-3.4); Absolute Monocyte Count 0.65 10^3/uL (0.1-0.8); Absolute Neutrophil Count 1.82 10^3/uL (1.2-6.7); Basophils % 1.1; Eosinophils % 10.2; HCT 31.9 % (36.0-46.0); HGB 10.7 g/dL (11.2-15.7); Immature Grans % 0.6; Lymphocytes % 20.1; MCH 34.2 pg (27.0-33.0); MCHC 33.5 % (32.0-36.0); MCV 102 fL (80-95); MPV 8.7 fL (8.0-11.0); Monocytes % 17.9; Neutrophils % 50.1; Platelet Count 289 10^3/uL (130-400); RBC 3.13 10^6/uL (3.93-5.22); RDW 17.8 % (11.7-14.6); RDW-SD 66.2 fL; WBC 3.63 10^3/uL (4.4-10.8)
[2022-08-13 08:07] LABS: ALT 35 U/L (14-59); AST 38 U/L (15-37); Albumin 3.3 g/dL (3.4-5.0); Alkaline Phosphatase 68 U/L (46-116); BUN 15 mg/dL (7-18); Bilirubin, Total 0.3 mg/dL (0.2-1.0); CREATININE 0.8 mg/dL (0.55-1.02); Calcium 9.3 mg/dL (8.5-10.1); Chloride 108 mmol/L (98-107); Estimated GFR 79.22 (mL/min/1.73m2); Glucose 98 mg/dL (74-106); Potassium 4.3 mmol/L (3.5-5.1); Sodium 140 mmol/L (136-145); Total Protein 6.7 g/dL (6.4-8.2)
[2022-08-13 20:42] LABS: CEA 6.2 ng/mL (See Note)
== END 2022-08-24 23:59 | disposition home or self-care (01) ==
LOC: INF 01:10
PROVIDERS: PCP Family Medicine; Visit Provider Internal Medicine Hematology & Oncology
DX: C20 Malignant neoplasm of rectum (principal); Z45.2 Encounter for adjustment and management of vascular access device
CPT/HCPCS: 36591; 80053; 82378; 85025

== ENCOUNTER 2022-09-10 00:20 | Outpatient (RCR) | payer MEDICARE, OTHER, SELFPAY ==
[2022-08-27] MEDS: Normal Saline Flush 10 ML SYR IVP (08:21)
[2022-08-27 08:50] LABS: Abs Immature Grans 0.02 10^3/uL (0.0-0.06); Absolute Basophil Count 0.02 10^3/uL (0.0-0.2); Absolute Lymphocyte Count 0.65 10^3/uL (1.2-3.4); Absolute Monocyte Count 0.57 10^3/uL (0.1-0.8); Absolute Neutrophil Count 1.69 10^3/uL (1.2-6.7); Basophils % 0.7; Eosinophils % 3.3; HCT 29.8 % (36.0-46.0); HGB 10.1 g/dL (11.2-15.7); Immature Grans % 0.7; Lymphocytes % 21.3; MCH 35.9 pg (27.0-33.0); MCHC 33.9 % (32.0-36.0); MCV 106 fL (80-95); MPV 8.8 fL (8.0-11.0); Monocytes % 18.7; Neutrophils % 55.3; Platelet Count 262 10^3/uL (130-400); RBC 2.81 10^6/uL (3.93-5.22); RDW 17.7 % (11.7-14.6); RDW-SD 69.8 fL; WBC 3.05 10^3/uL (4.4-10.8)
[2022-08-27 08:57] LABS: ALT 27 U/L (14-59); AST 29 U/L (15-37); Albumin 3.2 g/dL (3.4-5.0); Alkaline Phosphatase 63 U/L (46-116); Anion Gap 7.7 mmol/L (3-11); BUN 13 mg/dL (7-18); Bilirubin, Total 0.3 mg/dL (0.2-1.0); CO2 26.3 mmol/L (21.0-32.0); CREATININE 0.7 mg/dL (0.55-1.02); Calcium 8.8 mg/dL (8.5-10.1); Chloride 106 mmol/L (98-107); Estimated GFR 92.98 (mL/min/1.73m2); Glucose 93 mg/dL (74-106); Potassium 4.4 mmol/L (3.5-5.1); Sodium 140 mmol/L (136-145); Total Protein 6.2 g/dL (6.4-8.2)
[2022-08-27 09:09] LABS: Macrocytosis 1+; Polychromasia Present
[2022-08-27 20:18] LABS: CEA 6.6 ng/mL (See Note)
[2022-09-10 08:26] LABS: Abs Immature Grans 0.02 10^3/uL (0.0-0.06); Absolute Basophil Count 0.05 10^3/uL (0.0-0.2); Absolute Eosinophil Count 0.09 10^3/uL (0.0-0.7); Absolute Lymphocyte Count 0.66 10^3/uL (1.2-3.4); Absolute Monocyte Count 0.84 10^3/uL (0.1-0.8); Absolute Neutrophil Count 3.12 10^3/uL (1.2-6.7); Eosinophils % 1.9; HCT 31.1 % (36.0-46.0); HGB 10.4 g/dL (11.2-15.7); Immature Grans % 0.4; Lymphocytes % 13.8; MCH 36.7 pg (27.0-33.0); MCHC 33.4 % (32.0-36.0); MCV 110 fL (80-95); MPV 8.8 fL (8.0-11.0); Monocytes % 17.6; Neutrophils % 65.3; Platelet Count 279 10^3/uL (130-400); RBC 2.83 10^6/uL (3.93-5.22); RDW 16.9 % (11.7-14.6); RDW-SD 68.2 fL; WBC 4.78 10^3/uL (4.4-10.8)
[2022-09-10 08:45] LABS: ALT 28 U/L (14-59); AST 27 U/L (15-37); Albumin 3.1 g/dL (3.4-5.0); Alkaline Phosphatase 59 U/L (46-116); Anion Gap 7.9 mmol/L (3-11); BUN 13 mg/dL (7-18); Bilirubin, Total 0.3 mg/dL (0.2-1.0); CO2 26.1 mmol/L (21.0-32.0); CREATININE 0.6 mg/dL (0.55-1.02); Calcium 8.9 mg/dL (8.5-10.1); Chloride 106 mmol/L (98-107); Glucose 103 mg/dL (74-106); Potassium 4.2 mmol/L (3.5-5.1); Sodium 140 mmol/L (136-145); Total Protein 6.1 g/dL (6.4-8.2)
[2022-09-10] MEDS: Normal Saline Flush 10 ML SYR IVP (09:06)
[2022-09-10 20:21] LABS: CEA 6.9 ng/mL (See Note)
== END 2022-09-21 23:59 | disposition home or self-care (01) ==
LOC: INF 00:20
PROVIDERS: PCP Family Medicine; Visit Provider Internal Medicine Hematology & Oncology
DX: C20 Malignant neoplasm of rectum (principal); C78.00 Secondary malignant neoplasm of unspecified lung; Z45.2 Encounter for adjustment and management of vascular access device
CPT/HCPCS: 36591; 80053; 82378; 85025

== ENCOUNTER 2022-10-22 01:23 | Outpatient (RCR) | payer MEDICARE, OTHER, SELFPAY ==
[2022-09-24] MEDS: Normal Saline Flush 10 ML SYR IVP (07:44)
[2022-09-24 07:49] LABS: Abs Immature Grans 0.02 10^3/uL (0.0-0.06); Absolute Basophil Count 0.03 10^3/uL (0.0-0.2); Absolute Eosinophil Count 0.23 10^3/uL (0.0-0.7); Absolute Lymphocyte Count 0.76 10^3/uL (1.2-3.4); Absolute Monocyte Count 0.69 10^3/uL (0.1-0.8); Absolute Neutrophil Count 3.66 10^3/uL (1.2-6.7); Basophils % 0.6; Eosinophils % 4.3; HCT 31.5 % (36.0-46.0); HGB 10.5 g/dL (11.2-15.7); Immature Grans % 0.4; Lymphocytes % 14.1; MCH 36.6 pg (27.0-33.0); MCHC 33.3 % (32.0-36.0); MCV 110 fL (80-95); MPV 8.8 fL (8.0-11.0); Monocytes % 12.8; Neutrophils % 67.8; Platelet Count 250 10^3/uL (130-400); RBC 2.87 10^6/uL (3.93-5.22); RDW 14.9 % (11.7-14.6); RDW-SD 61.3 fL; WBC 5.39 10^3/uL (4.4-10.8)
[2022-09-24 08:04] LABS: ALT 31 U/L (14-59); AST 25 U/L (15-37); Albumin 3.1 g/dL (3.4-5.0); Alkaline Phosphatase 61 U/L (46-116); Anion Gap 8.5 mmol/L (3-11); BUN 10 mg/dL (7-18); Bilirubin, Total 0.3 mg/dL (0.2-1.0); CO2 24.5 mmol/L (21.0-32.0); CREATININE 0.7 mg/dL (0.55-1.02); Calcium 8.3 mg/dL (8.5-10.1); Chloride 104 mmol/L (98-107); Estimated GFR 92.98 (mL/min/1.73m2); Glucose 96 mg/dL (74-106); Potassium 4.2 mmol/L (3.5-5.1); Sodium 137 mmol/L (136-145)
[2022-09-24 20:08] LABS: CEA 8.1 ng/mL (See Note)
[2022-10-08] MEDS: Normal Saline Flush 10 ML SYR IVP (10:04)
[2022-10-08 10:07] LABS: Abs Immature Grans 0.03 10^3/uL (0.0-0.06); Absolute Basophil Count 0.03 10^3/uL (0.0-0.2); Absolute Eosinophil Count 0.11 10^3/uL (0.0-0.7); Absolute Lymphocyte Count 0.63 10^3/uL (1.2-3.4); Absolute Monocyte Count 0.86 10^3/uL (0.1-0.8); Absolute Neutrophil Count 5.94 10^3/uL (1.2-6.7); Basophils % 0.4; Eosinophils % 1.4; HCT 32.3 % (36.0-46.0); HGB 11.1 g/dL (11.2-15.7); Immature Grans % 0.4; Lymphocytes % 8.3; MCH 37.9 pg (27.0-33.0); MCHC 34.4 % (32.0-36.0); MCV 110 fL (80-95); MPV 8.6 fL (8.0-11.0); Monocytes % 11.3; Neutrophils % 78.2; Platelet Count 298 10^3/uL (130-400); RBC 2.93 10^6/uL (3.93-5.22); RDW 14.3 % (11.7-14.6); RDW-SD 59.1 fL
[2022-10-08 10:18] LABS: Diff Comment Diff Reviewed; Macrocytosis 1+
[2022-10-08 10:31] LABS: ALT 32 U/L (14-59); AST 26 U/L (15-37); Albumin 3.3 g/dL (3.4-5.0); Alkaline Phosphatase 68 U/L (46-116); Anion Gap 6.9 mmol/L (3-11); BUN 13 mg/dL (7-18); Bilirubin, Total 0.4 mg/dL (0.2-1.0); CO2 27.1 mmol/L (21.0-32.0); CREATININE 0.7 mg/dL (0.55-1.02); Calcium 9.1 mg/dL (8.5-10.1); Chloride 103 mmol/L (98-107); Estimated GFR 92.98 (mL/min/1.73m2); Glucose 103 mg/dL (74-106); Potassium 3.5 mmol/L (3.5-5.1); Sodium 137 mmol/L (136-145); Total Protein 6.6 g/dL (6.4-8.2)
[2022-10-08 20:40] LABS: CEA 8.8 ng/mL (See Note)
[2022-10-22] MEDS: Normal Saline Flush 10 ML SYR IVP (10:12)
[2022-10-22 10:30] LABS: Abs Immature Grans 0.01 10^3/uL (0.0-0.06); Absolute Basophil Count 0.02 10^3/uL (0.0-0.2); Absolute Eosinophil Count 0.08 10^3/uL (0.0-0.7); Absolute Lymphocyte Count 0.65 10^3/uL (1.2-3.4); Absolute Neutrophil Count 2.15 10^3/uL (1.2-6.7); Basophils % 0.6; Eosinophils % 2.3; HCT 33.2 % (36.0-46.0); HGB 11.1 g/dL (11.2-15.7); Immature Grans % 0.3; Lymphocytes % 18.5; MCH 36.4 pg (27.0-33.0); MCHC 33.4 % (32.0-36.0); MCV 109 fL (80-95); MPV 8.7 fL (8.0-11.0); Monocytes % 17.1; Neutrophils % 61.2; Platelet Count 267 10^3/uL (130-400); RBC 3.05 10^6/uL (3.93-5.22); RDW 13.9 % (11.7-14.6); RDW-SD 55.9 fL; WBC 3.51 10^3/uL (4.4-10.8)
[2022-10-22 10:37] LABS: ALT 32 U/L (14-59); AST 30 U/L (15-37); Albumin 3.3 g/dL (3.4-5.0); Alkaline Phosphatase 68 U/L (46-116); Anion Gap 7.2 mmol/L (3-11); BUN 13 mg/dL (7-18); Bilirubin, Total 0.3 mg/dL (0.2-1.0); CO2 26.8 mmol/L (21.0-32.0); CREATININE 0.7 mg/dL (0.55-1.02); Calcium 9.1 mg/dL (8.5-10.1); Chloride 104 mmol/L (98-107); Estimated GFR 92.98 (mL/min/1.73m2); Glucose 109 mg/dL (74-106); Potassium 3.5 mmol/L (3.5-5.1); Sodium 138 mmol/L (136-145); Total Protein 6.4 g/dL (6.4-8.2)
[2022-10-22 20:20] LABS: CEA 9.2 ng/mL (See Note)
== END 2022-10-22 23:59 | disposition home or self-care (01) ==
LOC: INF 01:23
PROVIDERS: PCP Family Medicine; Visit Provider Internal Medicine Hematology & Oncology
DX: C20 Malignant neoplasm of rectum (principal); Z45.2 Encounter for adjustment and management of vascular access device
CPT/HCPCS: 36415; 36591; 80053; 82378; 85025

== ENCOUNTER 2022-11-19 00:56 | Outpatient (RCR) | payer MEDICARE, OTHER, SELFPAY ==
[2022-11-05] MEDS: Normal Saline Flush 10 ML SYR IVP (08:42)
[2022-11-05 08:55] LABS: Abs Immature Grans 0.02 10^3/uL (0.0-0.06); Absolute Basophil Count 0.02 10^3/uL (0.0-0.2); Absolute Eosinophil Count 0.14 10^3/uL (0.0-0.7); Absolute Lymphocyte Count 0.72 10^3/uL (1.2-3.4); Absolute Monocyte Count 0.64 10^3/uL (0.1-0.8); Absolute Neutrophil Count 2.16 10^3/uL (1.2-6.7); Basophils % 0.5; Eosinophils % 3.8; HCT 31.7 % (36.0-46.0); HGB 10.9 g/dL (11.2-15.7); Immature Grans % 0.5; Lymphocytes % 19.5; MCH 37.6 pg (27.0-33.0); MCHC 34.4 % (32.0-36.0); MCV 109 fL (80-95); MPV 8.5 fL (8.0-11.0); Monocytes % 17.3; Neutrophils % 58.4; Platelet Count 237 10^3/uL (130-400); RDW 14.2 % (11.7-14.6); RDW-SD 57.7 fL
[2022-11-05 09:07] LABS: Diff Comment RBC Morph Reviewed; Macrocytosis 1+; Polychromasia Present
[2022-11-05 09:10] LABS: ALT 28 U/L (14-59); AST 27 U/L (15-37); Alkaline Phosphatase 58 U/L (46-116); Anion Gap 5.1 mmol/L (3-11); BUN 14 mg/dL (7-18); Bilirubin, Total 0.2 mg/dL (0.2-1.0); CO2 24.9 mmol/L (21.0-32.0); CREATININE 0.7 mg/dL (0.55-1.02); Calcium 8.2 mg/dL (8.5-10.1); Chloride 108 mmol/L (98-107); Estimated GFR 92.98 (mL/min/1.73m2); Glucose 104 mg/dL (74-106); Potassium 3.9 mmol/L (3.5-5.1); Sodium 138 mmol/L (136-145); Total Protein 6.1 g/dL (6.4-8.2)
[2022-11-05 19:19] LABS: CEA 9.8 ng/mL (See Note)
[2022-11-19 09:08] LABS: Abs Immature Grans 0.01 10^3/uL (0.0-0.06); Absolute Basophil Count 0.03 10^3/uL (0.0-0.2); Absolute Eosinophil Count 0.09 10^3/uL (0.0-0.7); Absolute Lymphocyte Count 0.73 10^3/uL (1.2-3.4); Absolute Monocyte Count 0.59 10^3/uL (0.1-0.8); Absolute Neutrophil Count 2.31 10^3/uL (1.2-6.7); Basophils % 0.8; Eosinophils % 2.4; HCT 33.4 % (36.0-46.0); HGB 11.3 g/dL (11.2-15.7); Immature Grans % 0.3; Lymphocytes % 19.4; MCH 36.9 pg (27.0-33.0); MCHC 33.8 % (32.0-36.0); MCV 109 fL (80-95); MPV 8.4 fL (8.0-11.0); Monocytes % 15.7; Neutrophils % 61.4; Platelet Count 252 10^3/uL (130-400); RBC 3.06 10^6/uL (3.93-5.22); RDW 14.1 % (11.7-14.6); RDW-SD 56.9 fL; WBC 3.76 10^3/uL (4.4-10.8)
[2022-11-19 09:21] LABS: ALT 30 U/L (14-59); AST 27 U/L (15-37); Albumin 3.3 g/dL (3.4-5.0); Alkaline Phosphatase 65 U/L (46-116); Anion Gap 5.7 mmol/L (3-11); BUN 14 mg/dL (7-18); Bilirubin, Total 0.4 mg/dL (0.2-1.0); CO2 26.3 mmol/L (21.0-32.0); CREATININE 0.8 mg/dL (0.55-1.02); Chloride 105 mmol/L (98-107); Estimated GFR 79.22 (mL/min/1.73m2); Glucose 145 mg/dL (74-106); Potassium 3.9 mmol/L (3.5-5.1); Sodium 137 mmol/L (136-145); Total Protein 6.6 g/dL (6.4-8.2)
[2022-11-19] MEDS: Normal Saline Flush 10 ML SYR IVP (09:25)
[2022-11-19 21:56] LABS: CEA 9.7 ng/mL (See Note)
== END 2022-11-21 23:59 | disposition home or self-care (01) ==
LOC: INF 00:56
PROVIDERS: PCP Family Medicine; Visit Provider Internal Medicine Hematology & Oncology
DX: C20 Malignant neoplasm of rectum (principal); Z45.2 Encounter for adjustment and management of vascular access device
CPT/HCPCS: 36591; 80053; 82378; 85025

== ENCOUNTER 2022-12-17 00:58 | Outpatient (RCR) | payer MEDICARE, OTHER, SELFPAY ==
[2022-12-03] MEDS: Normal Saline Flush 10 ML SYR IVP (12:10)
[2022-12-03 12:25] LABS: Abs Immature Grans 0.01 10^3/uL (0.0-0.06); Absolute Basophil Count 0.02 10^3/uL (0.0-0.2); Absolute Eosinophil Count 0.09 10^3/uL (0.0-0.7); Absolute Lymphocyte Count 0.85 10^3/uL (1.2-3.4); Absolute Monocyte Count 0.69 10^3/uL (0.1-0.8); Absolute Neutrophil Count 2.49 10^3/uL (1.2-6.7); Basophils % 0.5; Eosinophils % 2.2; HCT 32.3 % (36.0-46.0); HGB 10.9 g/dL (11.2-15.7); Immature Grans % 0.2; Lymphocytes % 20.5; MCH 36.7 pg (27.0-33.0); MCHC 33.7 % (32.0-36.0); MCV 109 fL (80-95); MPV 8.6 fL (8.0-11.0); Monocytes % 16.6; Platelet Count 249 10^3/uL (130-400); RBC 2.97 10^6/uL (3.93-5.22); RDW 14.4 % (11.7-14.6); WBC 4.15 10^3/uL (4.4-10.8)
[2022-12-03 12:45] LABS: ALT 21 U/L (14-59); AST 22 U/L (15-37); Albumin 3.5 g/dL (3.4-5.0); Alkaline Phosphatase 58 U/L (46-116); Anion Gap 11.1 mmol/L (3-11); BUN 16 mg/dL (7-18); Bilirubin, Total 0.3 mg/dL (0.2-1.0); CO2 26.9 mmol/L (21.0-32.0); CREATININE 0.7 mg/dL (0.55-1.02); Calcium 9.1 mg/dL (8.5-10.1); Chloride 105 mmol/L (98-107); Estimated GFR 92.98 (mL/min/1.73m2); Glucose 96 mg/dL (74-106); Potassium 3.9 mmol/L (3.5-5.1); Sodium 143 mmol/L (136-145); Total Protein 6.6 g/dL (6.4-8.2)
[2022-12-03 13:04] LABS: Macrocytosis 1+
[2022-12-03 23:17] LABS: CEA 9.9 ng/mL (See Note)
[2022-12-17] MEDS: Normal Saline Flush 10 ML SYR IVP (09:00)
[2022-12-17 09:37] LABS: Abs Immature Grans 0.01 10^3/uL (0.0-0.06); Absolute Basophil Count 0.04 10^3/uL (0.0-0.2); Absolute Lymphocyte Count 0.78 10^3/uL (1.2-3.4); Absolute Monocyte Count 0.67 10^3/uL (0.1-0.8); Absolute Neutrophil Count 2.75 10^3/uL (1.2-6.7); Basophils % 0.9; Eosinophils % 4.5; HCT 32.1 % (36.0-46.0); HGB 11.1 g/dL (11.2-15.7); Immature Grans % 0.2; Lymphocytes % 17.5; MCH 37.6 pg (27.0-33.0); MCHC 34.6 % (32.0-36.0); MCV 109 fL (80-95); MPV 8.8 fL (8.0-11.0); Monocytes % 15.1; Neutrophils % 61.8; Platelet Count 248 10^3/uL (130-400); RBC 2.95 10^6/uL (3.93-5.22); RDW 14.6 % (11.7-14.6); RDW-SD 58.5 fL; WBC 4.45 10^3/uL (4.4-10.8)
[2022-12-17 09:56] LABS: ALT 30 U/L (14-59); AST 27 U/L (15-37); Albumin 3.4 g/dL (3.4-5.0); Alkaline Phosphatase 59 U/L (46-116); Anion Gap 6.1 mmol/L (3-11); BUN 13 mg/dL (7-18); Bilirubin, Total 0.4 mg/dL (0.2-1.0); CO2 25.9 mmol/L (21.0-32.0); CREATININE 0.7 mg/dL (0.55-1.02); Calcium 8.6 mg/dL (8.5-10.1); Chloride 106 mmol/L (98-107); Estimated GFR 92.98 (mL/min/1.73m2); Glucose 96 mg/dL (74-106); Potassium 4.2 mmol/L (3.5-5.1); Sodium 138 mmol/L (136-145); Total Protein 6.4 g/dL (6.4-8.2)
[2022-12-17 09:59] LABS: Macrocytosis 1+
[2022-12-17 20:32] LABS: CEA 12.5 ng/mL (See Note)
== END 2022-12-22 23:59 | disposition home or self-care (01) ==
LOC: INF 00:58
PROVIDERS: PCP Family Medicine; Visit Provider Internal Medicine Hematology & Oncology
DX: C78.00 Secondary malignant neoplasm of unspecified lung (principal); Z45.2 Encounter for adjustment and management of vascular access device
CPT/HCPCS: 36591; 80053; 82378; 85025

== ENCOUNTER 2023-01-14 00:02 | Outpatient (RCR) | payer MEDICARE, OTHER, SELFPAY ==
[2022-12-31] MEDS: Normal Saline Flush 10 ML SYR IVP (08:36)
[2022-12-31 08:52] LABS: Abs Immature Grans 0.02 10^3/uL (0.0-0.06); Absolute Basophil Count 0.04 10^3/uL (0.0-0.2); Absolute Eosinophil Count 0.12 10^3/uL (0.0-0.7); Absolute Monocyte Count 0.81 10^3/uL (0.1-0.8); Absolute Neutrophil Count 3.07 10^3/uL (1.2-6.7); Basophils % 0.8; Eosinophils % 2.5; HCT 32.7 % (36.0-46.0); HGB 11.2 g/dL (11.2-15.7); Immature Grans % 0.4; Lymphocytes % 14.7; MCH 36.8 pg (27.0-33.0); MCHC 34.3 % (32.0-36.0); MCV 108 fL (80-95); MPV 8.6 fL (8.0-11.0); Neutrophils % 64.6; Platelet Count 240 10^3/uL (130-400); RBC 3.04 10^6/uL (3.93-5.22); RDW 14.3 % (11.7-14.6); RDW-SD 56.5 fL; WBC 4.76 10^3/uL (4.4-10.8)
[2022-12-31 09:04] LABS: ALT 28 U/L (14-59); AST 31 U/L (15-37); Albumin 3.2 g/dL (3.4-5.0); Alkaline Phosphatase 67 U/L (46-116); Anion Gap 6.6 mmol/L (3-11); BUN 10 mg/dL (7-18); Bilirubin, Total 0.3 mg/dL (0.2-1.0); CO2 25.4 mmol/L (21.0-32.0); CREATININE 0.6 mg/dL (0.55-1.02); Calcium 8.6 mg/dL (8.5-10.1); Chloride 104 mmol/L (98-107); Glucose 99 mg/dL (74-106); Potassium 4.2 mmol/L (3.5-5.1); Sodium 136 mmol/L (136-145); Total Protein 6.5 g/dL (6.4-8.2)
[2022-12-31 21:35] LABS: CEA 8.7 ng/mL (See Note)
[2023-01-14] MEDS: Normal Saline Flush 10 ML SYR IVP (07:52)
[2023-01-14 08:02] LABS: Abs Immature Grans 0.01 10^3/uL (0.0-0.06); Absolute Basophil Count 0.02 10^3/uL (0.0-0.2); Absolute Eosinophil Count 0.11 10^3/uL (0.0-0.7); Absolute Lymphocyte Count 0.62 10^3/uL (1.2-3.4); Absolute Monocyte Count 1.01 10^3/uL (0.1-0.8); Absolute Neutrophil Count 2.36 10^3/uL (1.2-6.7); Basophils % 0.5; Eosinophils % 2.7; HCT 31.9 % (36.0-46.0); Immature Grans % 0.2; MCH 37.8 pg (27.0-33.0); MCHC 34.5 % (32.0-36.0); MCV 110 fL (80-95); MPV 9.2 fL (8.0-11.0); Monocytes % 24.5; Neutrophils % 57.1; Platelet Count 190 10^3/uL (130-400); RBC 2.91 10^6/uL (3.93-5.22); RDW 14.6 % (11.7-14.6); RDW-SD 58.6 fL; WBC 4.13 10^3/uL (4.4-10.8)
[2023-01-14 08:27] LABS: ALT 31 U/L (14-59); AST 34 U/L (15-37); Albumin 3.2 g/dL (3.4-5.0); Alkaline Phosphatase 67 U/L (46-116); Anion Gap 9.2 mmol/L (3-11); BUN 15 mg/dL (7-18); Bilirubin, Total 0.3 mg/dL (0.2-1.0); CO2 24.8 mmol/L (21.0-32.0); CREATININE 0.6 mg/dL (0.55-1.02); Calcium 8.8 mg/dL (8.5-10.1); Chloride 106 mmol/L (98-107); Glucose 97 mg/dL (74-106); Potassium 4.2 mmol/L (3.5-5.1); Sodium 140 mmol/L (136-145); Total Protein 6.5 g/dL (6.4-8.2)
[2023-01-14 20:26] LABS: CEA 7.8 ng/mL (See Note)
== END 2023-01-21 23:59 | disposition home or self-care (01) ==
LOC: INF 00:02
PROVIDERS: PCP Family Medicine; Visit Provider Internal Medicine Hematology & Oncology
DX: C20 Malignant neoplasm of rectum (principal); C78.00 Secondary malignant neoplasm of unspecified lung; Z45.2 Encounter for adjustment and management of vascular access device
CPT/HCPCS: 36591; 80053; 82378; 85025

== ENCOUNTER 2023-02-11 01:14 | Outpatient (RCR) | payer MEDICARE, OTHER, SELFPAY ==
[2023-01-28 08:19] LABS: Abs Immature Grans 0.01 10^3/uL (0.0-0.06); Absolute Basophil Count 0.01 10^3/uL (0.0-0.2); Absolute Eosinophil Count 0.05 10^3/uL (0.0-0.7); Absolute Lymphocyte Count 0.66 10^3/uL (1.2-3.4); Absolute Monocyte Count 0.66 10^3/uL (0.1-0.8); Absolute Neutrophil Count 1.94 10^3/uL (1.2-6.7); Basophils % 0.3; Eosinophils % 1.5; HCT 33.3 % (36.0-46.0); HGB 11.5 g/dL (11.2-15.7); Immature Grans % 0.3; Lymphocytes % 19.8; MCH 37.6 pg (27.0-33.0); MCHC 34.5 % (32.0-36.0); MCV 109 fL (80-95); MPV 9.4 fL (8.0-11.0); Monocytes % 19.8; Neutrophils % 58.3; Platelet Count 200 10^3/uL (130-400); RBC 3.06 10^6/uL (3.93-5.22); RDW 14.9 % (11.7-14.6); WBC 3.33 10^3/uL (4.4-10.8)
[2023-01-28 08:35] LABS: ALT 26 U/L (14-59); AST 30 U/L (15-37); Albumin 3.3 g/dL (3.4-5.0); Alkaline Phosphatase 76 U/L (46-116); Anion Gap 10.1 mmol/L (3-11); BUN 12 mg/dL (7-18); Bilirubin, Total 0.3 mg/dL (0.2-1.0); CO2 25.9 mmol/L (21.0-32.0); CREATININE 0.7 mg/dL (0.55-1.02); Calcium 8.8 mg/dL (8.5-10.1); Chloride 105 mmol/L (98-107); Estimated GFR 92.98 (mL/min/1.73m2); Glucose 134 mg/dL (74-106); Potassium 3.9 mmol/L (3.5-5.1); Sodium 141 mmol/L (136-145); Total Protein 6.9 g/dL (6.4-8.2)
[2023-01-28] MEDS: Normal Saline Flush 10 ML SYR IVP (10:58)
[2023-01-28 21:02] LABS: CEA 9.9 ng/mL (See Note)
[2023-02-11] MEDS: Normal Saline Flush 10 ML SYR IVP (08:04)
[2023-02-11 08:19] LABS: Absolute Basophil Count 0.02 10^3/uL (0.0-0.2); Absolute Eosinophil Count 0.05 10^3/uL (0.0-0.7); Absolute Lymphocyte Count 0.59 10^3/uL (1.2-3.4); Absolute Neutrophil Count 1.52 10^3/uL (1.2-6.7); Basophils % 0.6; Eosinophils % 1.6; HCT 30.2 % (36.0-46.0); HGB 10.4 g/dL (11.2-15.7); Lymphocytes % 19.2; MCH 37.4 pg (27.0-33.0); MCHC 34.4 % (32.0-36.0); Monocytes % 29.2; Neutrophils % 49.4; Platelet Count 163 10^3/uL (130-400); RBC 2.78 10^6/uL (3.93-5.22); RDW-SD 59.4 fL; WBC 3.08 10^3/uL (4.4-10.8)
[2023-02-11 08:20] LABS: MCV 109 fL (80-95)
[2023-02-11 08:31] LABS: ALT 24 U/L (14-59); AST 28 U/L (15-37); Albumin 3.1 g/dL (3.4-5.0); Alkaline Phosphatase 68 U/L (46-116); Anion Gap 6.4 mmol/L (3-11); BUN 13 mg/dL (7-18); Bilirubin, Total 0.2 mg/dL (0.2-1.0); CO2 26.6 mmol/L (21.0-32.0); CREATININE 0.6 mg/dL (0.55-1.02); Calcium 8.4 mg/dL (8.5-10.1); Chloride 107 mmol/L (98-107); Glucose 92 mg/dL (74-106); Potassium 4.2 mmol/L (3.5-5.1); Sodium 140 mmol/L (136-145); Total Protein 6.6 g/dL (6.4-8.2)
[2023-02-11 20:56] LABS: CEA 12.4 ng/mL (See Note)
== END 2023-02-21 23:59 | disposition home or self-care (01) ==
LOC: INF 01:14
PROVIDERS: PCP Family Medicine; Visit Provider Internal Medicine Hematology & Oncology
DX: C20 Malignant neoplasm of rectum (principal); C78.00 Secondary malignant neoplasm of unspecified lung; Z45.2 Encounter for adjustment and management of vascular access device
CPT/HCPCS: 36591; 80053; 82378; 85025

== ENCOUNTER 2023-03-11 02:00 | Outpatient (RCR) | payer MEDICARE, OTHER, SELFPAY ==
[2023-02-25] MEDS: Normal Saline Flush 10 ML SYR IVP (07:41)
[2023-02-25 07:53] LABS: Absolute Basophil Count 0.02 10^3/uL (0.0-0.2); Absolute Eosinophil Count 0.04 10^3/uL (0.0-0.7); Absolute Monocyte Count 0.92 10^3/uL (0.1-0.8); Absolute Neutrophil Count 2.07 10^3/uL (1.2-6.7); Basophils % 0.5; Eosinophils % 1.1; HCT 30.4 % (36.0-46.0); HGB 10.6 g/dL (11.2-15.7); Lymphocytes % 16.4; MCH 37.9 pg (27.0-33.0); MCHC 34.9 % (32.0-36.0); MCV 109 fL (80-95); MPV 9.5 fL (8.0-11.0); Monocytes % 25.2; Neutrophils % 56.8; Platelet Count 193 10^3/uL (130-400); RDW 16.2 % (11.7-14.6); RDW-SD 63.6 fL; WBC 3.65 10^3/uL (4.4-10.8)
[2023-02-25 08:10] LABS: Albumin 3.1 g/dL (3.4-5.0); Alkaline Phosphatase 83 U/L (46-116); BUN 11 mg/dL (7-18); Bilirubin, Total 0.3 mg/dL (0.2-1.0); CO2 26.5 mmol/L (21.0-32.0); CREATININE 0.6 mg/dL (0.55-1.02); Chloride 104 mmol/L (98-107); Glucose 101 mg/dL (74-106); Macrocytosis 1+; Potassium 3.9 mmol/L (3.5-5.1); Sodium 138 mmol/L (136-145); Total Protein 6.8 g/dL (6.4-8.2)
[2023-02-25 08:11] LABS: ALT 23 U/L (14-59); AST 30 U/L (15-37); Anion Gap 7.5 mmol/L (3-11)
[2023-02-28 08:14] LABS: CEA 11.4 ng/mL (See Note)
[2023-03-11] MEDS: Normal Saline Flush 10 ML SYR IVP (07:50)
[2023-03-11 08:03] LABS: Abs Immature Grans 0.01 10^3/uL (0.0-0.06); Absolute Basophil Count 0.02 10^3/uL (0.0-0.2); Absolute Eosinophil Count 0.05 10^3/uL (0.0-0.7); Absolute Lymphocyte Count 0.54 10^3/uL (1.2-3.4); Absolute Monocyte Count 1.09 10^3/uL (0.1-0.8); Basophils % 0.5; Eosinophils % 1.3; HCT 29.3 % (36.0-46.0); HGB 10.1 g/dL (11.2-15.7); Immature Grans % 0.3; Lymphocytes % 13.8; MCH 38.3 pg (27.0-33.0); MCHC 34.5 % (32.0-36.0); MCV 111 fL (80-95); MPV 9.7 fL (8.0-11.0); Monocytes % 27.9; Neutrophils % 56.2; Platelet Count 201 10^3/uL (130-400); RBC 2.64 10^6/uL (3.93-5.22); RDW 16.5 % (11.7-14.6); RDW-SD 66.4 fL; WBC 3.91 10^3/uL (4.4-10.8)
[2023-03-11 08:19] LABS: ALT 24 U/L (14-59); AST 32 U/L (15-37); Albumin 3.1 g/dL (3.4-5.0); Alkaline Phosphatase 73 U/L (46-116); Anion Gap 10.3 mmol/L (3-11); BUN 14 mg/dL (7-18); Bilirubin, Total 0.4 mg/dL (0.2-1.0); CO2 23.7 mmol/L (21.0-32.0); CREATININE 0.6 mg/dL (0.55-1.02); Calcium 8.7 mg/dL (8.5-10.1); Chloride 107 mmol/L (98-107); Glucose 95 mg/dL (74-106); Potassium 4.3 mmol/L (3.5-5.1); Sodium 141 mmol/L (136-145); Total Protein 6.8 g/dL (6.4-8.2)
[2023-03-11 19:09] LABS: CEA 7.9 ng/mL (See Note)
== END 2023-03-24 23:59 | disposition home or self-care (01) ==
LOC: INF 02:00
PROVIDERS: PCP Family Medicine; Visit Provider Internal Medicine Hematology & Oncology
DX: C20 Malignant neoplasm of rectum (principal); C78.00 Secondary malignant neoplasm of unspecified lung; Z45.2 Encounter for adjustment and management of vascular access device
CPT/HCPCS: 36591; 80053; 82378; 85025

== ENCOUNTER 2023-04-15 01:38 | Outpatient (RCR) | payer MEDICARE, OTHER, SELFPAY ==
[2023-03-25] MEDS: Normal Saline Flush 10 ML SYR IVP (07:42)
[2023-03-25 08:00] LABS: Abs Immature Grans 0.01 10^3/uL (0.0-0.06); Absolute Basophil Count 0.03 10^3/uL (0.0-0.2); Absolute Eosinophil Count 0.08 10^3/uL (0.0-0.7); Absolute Lymphocyte Count 0.53 10^3/uL (1.2-3.4); Absolute Monocyte Count 1.09 10^3/uL (0.1-0.8); Absolute Neutrophil Count 2.84 10^3/uL (1.2-6.7); Basophils % 0.7; Eosinophils % 1.7; HCT 29.7 % (36.0-46.0); HGB 10.4 g/dL (11.2-15.7); Immature Grans % 0.2; Lymphocytes % 11.6; MCH 38.4 pg (27.0-33.0); MCV 110 fL (80-95); MPV 9.7 fL (8.0-11.0); Monocytes % 23.8; Platelet Count 203 10^3/uL (130-400); RBC 2.71 10^6/uL (3.93-5.22); WBC 4.58 10^3/uL (4.4-10.8)
[2023-03-25 08:18] LABS: Bilirubin Negative (Negative); Blood Negative (Negative); Clarity Clear (Clear); Glucose Negative (Negative); Ketones Negative (Negative); Leukocyte Esterase Negative (Negative); Nitrite Negative (Negative); Specific Gravity 1.025 (1.005-1.025); Urobilinogen 0.2 mg/dL (Up to 0.2); pH 5.5 (5-8)
[2023-03-25 08:23] LABS: ALT 20 U/L (14-59); AST 33 U/L (15-37); Albumin 2.8 g/dL (3.4-5.0); Alkaline Phosphatase 80 U/L (46-116); Anion Gap 10.6 mmol/L (3-11); BUN 8 mg/dL (7-18); Bilirubin, Total 0.4 mg/dL (0.2-1.0); CO2 24.4 mmol/L (21.0-32.0); CREATININE 0.6 mg/dL (0.55-1.02); Chloride 103 mmol/L (98-107); Glucose 101 mg/dL (74-106); Potassium 3.5 mmol/L (3.5-5.1); Sodium 138 mmol/L (136-145); Total Protein 6.8 g/dL (6.4-8.2)
[2023-03-25 08:24] LABS: Macrocytosis 1+; Polychromasia Present
[2023-03-25 08:28] LABS: Bacteria Rare HPF (Negative); C & S Indicated? No; Casts Negative LPF (Negative); Crystals Negative HPF (Negative); Epithelial Cells Negative HPF (Negative); Mucus Trace (Negative); Other Cells Negative (Negative); RBC Negative HPF (0-2)
[2023-04-08] MEDS: Normal Saline Flush 10 ML SYR IVP (07:48)
[2023-04-08 08:39] LABS: Abs Immature Grans 0.01 10^3/uL (0.0-0.06); Absolute Basophil Count 0.02 10^3/uL (0.0-0.2); Absolute Eosinophil Count 0.06 10^3/uL (0.0-0.7); Absolute Monocyte Count 1.16 10^3/uL (0.1-0.8); Basophils % 0.5; Eosinophils % 1.4; HCT 28.1 % (36.0-46.0); HGB 9.6 g/dL (11.2-15.7); Immature Grans % 0.2; Lymphocytes % 11.8; MCH 38.7 pg (27.0-33.0); MCHC 34.2 % (32.0-36.0); MCV 113 fL (80-95); MPV 9.7 fL (8.0-11.0); Monocytes % 27.3; Neutrophils % 58.8; Platelet Count 227 10^3/uL (130-400); RBC 2.48 10^6/uL (3.93-5.22); RDW 14.9 % (11.7-14.6); RDW-SD 62.6 fL; WBC 4.25 10^3/uL (4.4-10.8)
[2023-04-08 08:41] LABS: Bilirubin Negative (Negative); Blood Negative (Negative); Clarity Clear (Clear); Glucose Negative (Negative); Ketones Negative (Negative); Leukocyte Esterase Negative (Negative); Nitrite Negative (Negative); Specific Gravity 1.025 (1.005-1.025); Urobilinogen 0.2 mg/dL (Up to 0.2); pH 6.5 (5-8)
[2023-04-08 09:02] LABS: ALT 18 U/L (14-59); AST 27 U/L (15-37); Albumin 2.7 g/dL (3.4-5.0); Alkaline Phosphatase 91 U/L (46-116); Anion Gap 9.3 mmol/L (3-11); BUN 13 mg/dL (7-18); Bilirubin, Total 0.3 mg/dL (0.2-1.0); CO2 24.7 mmol/L (21.0-32.0); CREATININE 0.6 mg/dL (0.55-1.02); Calcium 9.3 mg/dL (8.5-10.1); Chloride 100 mmol/L (98-107); Glucose 105 mg/dL (74-106); Potassium 4.1 mmol/L (3.5-5.1); Sodium 134 mmol/L (136-145); Total Protein 7.2 g/dL (6.4-8.2)
[2023-04-08 20:34] LABS: CEA 8.2 ng/mL (See Note)
== END 2023-04-23 23:59 | disposition home or self-care (01) ==
LOC: INF 01:38
PROVIDERS: PCP Family Medicine; Visit Provider Internal Medicine Hematology & Oncology
DX: Z79.899 Other long term (current) drug therapy (principal); C20 Malignant neoplasm of rectum; C78.00 Secondary malignant neoplasm of unspecified lung; Z45.2 Encounter for adjustment and management of vascular access device
CPT/HCPCS: 36591; 80053; 81003; 81015; 82378; 85025

== ENCOUNTER 2023-04-29 01:21 | Outpatient (RCR) | payer MEDICARE, OTHER, SELFPAY ==
[2023-04-29] MEDS: Normal Saline Flush 10 ML SYR IVP (07:36)
[2023-04-29 08:47] LABS: Abs Immature Grans 0.06 10^3/uL (0.0-0.06); Absolute Basophil Count 0.03 10^3/uL (0.0-0.2); Absolute Eosinophil Count 0.11 10^3/uL (0.0-0.7); Absolute Lymphocyte Count 0.67 10^3/uL (1.2-3.4); Absolute Monocyte Count 1.25 10^3/uL (0.1-0.8); Absolute Neutrophil Count 5.94 10^3/uL (1.2-6.7); Basophils % 0.4; Bilirubin Negative (Negative); Blood Negative (Negative); Clarity Clear (Clear); Eosinophils % 1.4; Glucose Negative (Negative); HCT 30.5 % (36.0-46.0); Immature Grans % 0.7; Ketones Negative (Negative); Leukocyte Esterase Negative (Negative); Lymphocytes % 8.3; MCH 36.6 pg (27.0-33.0); MCHC 32.8 % (32.0-36.0); MCV 112 fL (80-95); MPV 9.2 fL (8.0-11.0); Monocytes % 15.5; Neutrophils % 73.7; Nitrite Negative (Negative); Platelet Count 545 10^3/uL (130-400); RBC 2.73 10^6/uL (3.93-5.22); RDW 14.8 % (11.7-14.6); RDW-SD 61.1 fL; Urobilinogen 0.2 mg/dL (Up to 0.2); WBC 8.06 10^3/uL (4.4-10.8); pH 5.5 (5-8)
[2023-04-29 08:54] LABS: Bacteria Negative HPF (Negative); Crystals Negative HPF (Negative); Epithelial Cells Rare HPF (Negative); RBC Negative HPF (0-2); WBC Negative HPF (0-5)
[2023-04-29 08:55] LABS: C & S Indicated? No; Casts 5-10 Hyaline LPF (Negative); Mucus Trace (Negative)
[2023-04-29 09:09] LABS: ALT 13 U/L (14-59); AST 21 U/L (15-37); Albumin 2.4 g/dL (3.4-5.0); Alkaline Phosphatase 109 U/L (46-116); Anion Gap 11.9 mmol/L (3-11); BUN 12 mg/dL (7-18); Bilirubin, Total 0.4 mg/dL (0.2-1.0); CO2 26.1 mmol/L (21.0-32.0); CREATININE 0.6 mg/dL (0.55-1.02); Calcium 10.3 mg/dL (8.5-10.1); Chloride 95 mmol/L (98-107); Glucose 122 mg/dL (74-106); Potassium 3.8 mmol/L (3.5-5.1); Sodium 133 mmol/L (136-145); Total Protein 8.1 g/dL (6.4-8.2)
[2023-04-29 20:12] LABS: CEA 11.2 ng/mL (See Note)
== END 2023-05-24 23:59 | disposition home or self-care (01) ==
LOC: INF 01:21
PROVIDERS: PCP Family Medicine; Visit Provider Internal Medicine Hematology & Oncology
DX: C20 Malignant neoplasm of rectum (principal); C78.00 Secondary malignant neoplasm of unspecified lung; Z45.2 Encounter for adjustment and management of vascular access device
CPT/HCPCS: 36591; 80053; 81003; 81015; 82378; 85025

== ENCOUNTER 2023-06-03 03:57 | Outpatient (RCR) | payer MEDICARE, OTHER, SELFPAY ==
[2023-06-03 10:08] LABS: Abs Immature Grans 0.03 10^3/uL (0.0-0.06); Absolute Basophil Count 0.02 10^3/uL (0.0-0.2); Absolute Eosinophil Count 0.02 10^3/uL (0.0-0.7); Absolute Lymphocyte Count 0.35 10^3/uL (1.2-3.4); Absolute Monocyte Count 0.59 10^3/uL (0.1-0.8); Absolute Neutrophil Count 4.82 10^3/uL (1.2-6.7); Basophils % 0.3; Eosinophils % 0.3; HCT 29.9 % (36.0-46.0); HGB 9.5 g/dL (11.2-15.7); Immature Grans % 0.5; MCH 33.3 pg (27.0-33.0); MCHC 31.8 % (32.0-36.0); MCV 105 fL (80-95); MPV 9.2 fL (8.0-11.0); Monocytes % 10.1; Neutrophils % 82.8; Platelet Count 399 10^3/uL (130-400); RBC 2.85 10^6/uL (3.93-5.22); RDW 17.2 % (11.7-14.6); WBC 5.83 10^3/uL (4.4-10.8)
[2023-06-03] MEDS: Normal Saline Flush 10 ML SYR IVP (10:26)
[2023-06-03 10:32] LABS: ALT 36 U/L (14-59); AST 27 U/L (15-37); Albumin 2.4 g/dL (3.4-5.0); Alkaline Phosphatase 126 U/L (46-116); Anion Gap 10.9 mmol/L (3-11); BUN 12 mg/dL (7-18); Bilirubin, Total 0.3 mg/dL (0.2-1.0); CO2 26.1 mmol/L (21.0-32.0); CREATININE 0.5 mg/dL (0.55-1.02); Calcium 9.9 mg/dL (8.5-10.1); Chloride 96 mmol/L (98-107); Estimated GFR 100.21 (mL/min/1.73m2); Glucose 149 mg/dL (74-106); Potassium 3.5 mmol/L (3.5-5.1); Sodium 133 mmol/L (136-145); Total Protein 7.9 g/dL (6.4-8.2)
[2023-06-03 18:51] LABS: CEA 16.4 ng/mL (See Note)
== END 2023-06-23 23:59 | disposition home or self-care (01) ==
LOC: INF 03:57
PROVIDERS: PCP Family Medicine; Visit Provider Internal Medicine Hematology & Oncology
DX: C20 Malignant neoplasm of rectum (principal); C78.00 Secondary malignant neoplasm of unspecified lung; Z79.899 Other long term (current) drug therapy; Z45.2 Encounter for adjustment and management of vascular access device
CPT/HCPCS: 36591; 80053; 82378; 85025

== ENCOUNTER 2023-07-08 00:59 | Outpatient (RCR) | payer MEDICARE, OTHER, SELFPAY ==
[2023-06-24] MEDS: Normal Saline Flush 10 ML SYR IVP (07:54)
[2023-06-24 08:22] LABS: Abs Immature Grans 0.04 10^3/uL (0.0-0.06); Absolute Basophil Count 0.03 10^3/uL (0.0-0.2); Absolute Eosinophil Count 0.02 10^3/uL (0.0-0.7); Absolute Lymphocyte Count 0.38 10^3/uL (1.2-3.4); Absolute Monocyte Count 0.41 10^3/uL (0.1-0.8); Absolute Neutrophil Count 3.39 10^3/uL (1.2-6.7); Basophils % 0.7; Eosinophils % 0.5; HCT 29.5 % (36.0-46.0); HGB 9.6 g/dL (11.2-15.7); Immature Grans % 0.9; Lymphocytes % 8.9; MCH 33.7 pg (27.0-33.0); MCHC 32.5 % (32.0-36.0); MCV 104 fL (80-95); MPV 9.4 fL (8.0-11.0); Monocytes % 9.6; Neutrophils % 79.4; Platelet Count 249 10^3/uL (130-400); RBC 2.85 10^6/uL (3.93-5.22); RDW 18.6 % (11.7-14.6); RDW-SD 69.9 fL; WBC 4.27 10^3/uL (4.4-10.8)
[2023-06-24 08:30] LABS: Bilirubin Negative (Negative); Blood Negative (Negative); Clarity Sl Cloudy (Clear); Glucose Negative (Negative); Ketones Negative (Negative); Leukocyte Esterase Negative (Negative); Nitrite Negative (Negative); Specific Gravity >= 1.030 (1.005-1.025); Urobilinogen 0.2 mg/dL (Up to 0.2); pH 5.5 (5-8)
[2023-06-24 08:41] LABS: RBC 0-2 HPF (0-2); WBC 0-2 HPF (0-5)
[2023-06-24 08:42] LABS: Bacteria Rare HPF (Negative); Epithelial Cells Moderate HPF (Negative)
[2023-06-24 08:43] LABS: C & S Indicated? No; Mucus Moderate (Negative)
[2023-06-24 08:45] LABS: ALT 17 U/L (14-59); AST 23 U/L (15-37); Albumin 2.4 g/dL (3.4-5.0); Alkaline Phosphatase 120 U/L (46-116); Anion Gap 10.6 mmol/L (3-11); BUN 14 mg/dL (7-18); Bilirubin, Total 0.2 mg/dL (0.2-1.0); CO2 29.4 mmol/L (21.0-32.0); CREATININE 0.5 mg/dL (0.55-1.02); Calcium 9.6 mg/dL (8.5-10.1); Chloride 98 mmol/L (98-107); Estimated GFR 100.21 (mL/min/1.73m2); Glucose 122 mg/dL (74-106); Potassium 3.2 mmol/L (3.5-5.1); Sodium 138 mmol/L (136-145); Total Protein 7.6 g/dL (6.4-8.2)
[2023-06-24 21:15] LABS: CEA 30.3 ng/mL (See Note)
[2023-07-08] MEDS: Normal Saline Flush 10 ML SYR IVP (08:26)
[2023-07-08 08:32] LABS: Abs Immature Grans 0.03 10^3/uL (0.0-0.06); Absolute Basophil Count 0.02 10^3/uL (0.0-0.2); Absolute Eosinophil Count 0.02 10^3/uL (0.0-0.7); Absolute Lymphocyte Count 0.39 10^3/uL (1.2-3.4); Absolute Monocyte Count 0.72 10^3/uL (0.1-0.8); Absolute Neutrophil Count 3.73 10^3/uL (1.2-6.7); Basophils % 0.4; Eosinophils % 0.4; HCT 30.2 % (36.0-46.0); HGB 9.5 g/dL (11.2-15.7); Immature Grans % 0.6; Lymphocytes % 7.9; MCH 32.2 pg (27.0-33.0); MCHC 31.5 % (32.0-36.0); MCV 102 fL (80-95); MPV 9.6 fL (8.0-11.0); Monocytes % 14.7; Platelet Count 301 10^3/uL (130-400); RBC 2.95 10^6/uL (3.93-5.22); RDW 20.9 % (11.7-14.6); WBC 4.91 10^3/uL (4.4-10.8)
[2023-07-08 08:42] LABS: Bilirubin Negative (Negative); Blood Negative (Negative); Clarity Clear (Clear); Glucose Negative (Negative); Ketones Negative (Negative); Leukocyte Esterase Negative (Negative); Nitrite Negative (Negative); Specific Gravity >= 1.030 (1.005-1.025); Urobilinogen 0.2 mg/dL (Up to 0.2); pH 5.5 (5-8)
[2023-07-08 08:48] LABS: ALT 15 U/L (14-59); AST 28 U/L (15-37); Albumin 2.4 g/dL (3.4-5.0); Alkaline Phosphatase 161 U/L (46-116); Anion Gap 11.2 mmol/L (3-11); BUN 13 mg/dL (7-18); Bilirubin, Total 0.2 mg/dL (0.2-1.0); CO2 27.8 mmol/L (21.0-32.0); CREATININE 0.6 mg/dL (0.55-1.02); Calcium 9.8 mg/dL (8.5-10.1); Chloride 96 mmol/L (98-107); Glucose 146 mg/dL (74-106); Potassium 3.4 mmol/L (3.5-5.1); Sodium 135 mmol/L (136-145); Total Protein 7.8 g/dL (6.4-8.2)
[2023-07-08 09:18] LABS: Anisocytosis 2+; Diff Comment RBC Morph Reviewed
[2023-07-08 09:24] LABS: Bacteria Negative HPF (Negative); C & S Indicated? No; Casts 5-10 Hyaline LPF (Negative); Crystals Rare Calcium Oxalate HPF (Negative); Epithelial Cells Few HPF (Negative); Mucus Moderate (Negative); RBC Negative HPF (0-2); WBC Negative HPF (0-5)
[2023-07-08 21:11] LABS: CEA 44.3 ng/mL (See Note)
== END 2023-07-24 23:59 | disposition home or self-care (01) ==
LOC: INF 00:59
PROVIDERS: PCP Family Medicine; Visit Provider Internal Medicine Hematology & Oncology
DX: C20 Malignant neoplasm of rectum (principal); C78.00 Secondary malignant neoplasm of unspecified lung; Z79.899 Other long term (current) drug therapy; Z45.2 Encounter for adjustment and management of vascular access device
CPT/HCPCS: 36591; 80053; 81003; 81015; 82378; 85025